=== PATIENT | female | born 1945 | race Caucasian/White ===

== ENCOUNTER → 2017-09-11 15:48 | Outpatient (CLI) | payer MEDICARE, MEDICAID, SELFPAY | PROVIDERS: PCP Physician Assistant; Visit Provider Internal Medicine Cardiovascular Disease | DX: R55 Syncope and collapse (principal); I10 Essential (primary) hypertension; R51 Headache; R53.83 Other fatigue; R40.0 Somnolence | CPT/HCPCS: 93225 ==

== ENCOUNTER → 2017-10-06 11:29 | Outpatient (REF) | payer MEDICARE, MEDICAID, SELFPAY ==
--- NOTE | 2017-10-06 11:41 | NVE_ITS ---
Venous Exam Indications: 729.5 Pain in limb. IMPRESSIONS 1. There is no evidence of significant Reflux. 2. No evidence of deep or superficial vein thrombosis involving the right lower extremity Right lower extremity venous duplex evaluation. Doppler flow study including spectral analysis, color and prieto scale imaging. Location: Vascular laboratory. Patient status: Outpatient. Tables: Venous flow and imaging: + +-------+ + Location Overall Flow properties + +-------+ + Right common femoral Patent Normal phasicity; spontaneous; normal augmentation; compressible + +-------+ + Right saphenofemoral junction Patent Compressible + +-------+ + Right profunda femoral Patent Compressible + +-------+ + Right femoral Patent Normal phasicity; spontaneous; normal augmentation; compressible + +-------+ + Right greater saphenous Patent Normal phasicity; spontaneous; normal augmentation; compressible + +-------+ + Right popliteal Patent Normal phasicity; spontaneous; normal augmentation; compressible + +-------+ + Right posterior tibial Patent Compressible + +-------+ + Right peroneal Patent Compressible + +-------+ + Right gastrocnemius Patent Compressible + +-------+ + Right soleal Patent Compressible + +-------+ + (Report amended ) Electronically signed by: Manohar Marvin [id number]
[2017-10-06 18:25] LABS: Basophils # 0.1 K/mm3 (0-0.2); Basophils % 0.9 % (0.1-2.0); Eosinophils # 0.4 K/mm3 (0.0-0.4); Hematocrit 41.9 % (37.0-47.0); Lymphocytes # 1.8 K/mm3 (0.7-4.5); Lymphocytes % 26.4 K/mm3 (10-50); Mean Corpuscular HGB Conc 31.1 g/dL (31.8-35.4); Mean Corpuscular Hemoglobin 31.1 pg (27.0-31.2); Mean Platelet Volume 10.2 fl (7.4-10.4); Monocytes # 0.5 K/mm3 (0.1-1.0); Monocytes % 7.9 % (1.7-9.3); Neutrophils # 3.9 K/mm3 (1.8-7.8); Neutrophils % 58.8 % (37.0-80.0); Platelet Count 321 K/mm3 (142-424); Red Blood Count 4.19 M/mm3 (4.20-5.40); White Blood Count 6.7 K/mm3 (4.8-10.8)
[2017-10-06 19:21] LABS: Alanine Aminotransferase 25 U/L (12-78); Albumin Level 4.2 gm/dL (3.4-5.0); Albumin/Globulin Ratio 1.3 (1.1-1.8); Alkaline Phosphatase 101 U/L (46-116); Amylase 38 U/L (25-125); Anion Gap 14.3 mEq/L (5-15); Aspartate Amino Transferase 18 U/L (15-37); Bilirubin,Total 0.3 mg/dL (0.2-1.0); Blood Urea Nitrogen 13 mg/dL (7-18); Carbon Dioxide 27 mmol/L (21.0-32.0); Chloride 106 mmol/L (98-107); Chol/HDL Ratio 3.8 (1-3.5); Cholesterol 178 mg/dL (140-200); Creatinine,Serum 1.25 mg/dL (0.55-1.02); Estimated Glomerular Filt Rate 42 ml/min (>60); GFR (African American) 51 ML/MIN (>60); Globulin 3.2 gm/dl (1.3-3.2); Glucose 106 mg/dL (74-106); HDL Cholesterol 47 mg/dL (29-89); LDL Cholesterol 83 mg/dL (0-130); Lipase 316 u/L (73-393); Potassium 4.3 mmoL/L (3.5-5.1); Sodium 143 mmol/L (136-145); T4 (Thyroxine) 7.4 ug/dl (4.7-13.3); Thyroid Stimulating Hormone 1.51 uIU/ml (0.358-3.740); Total Protein,Serum 7.4 gm/dL (6.4-8.2); Triglycerides 240 mg/dL (30-200); VLDL Cholesterol 48 mg/dL (0-40)
[2017-10-08 09:11] LABS: Vitamin D 25 Hydroxy 37.4 ng/mL (30.0-100.0)
== END ==
LOC: LAB 11:29
PROVIDERS: PCP Physician Assistant; Visit Provider Physician Assistant
DX: M79.604 Pain in right leg (principal); R53.83 Other fatigue; I10 Essential (primary) hypertension
CPT/HCPCS: 80053; 80061; 82150; 82652; 83690; 84436; 84443; 85025; 93971

== ENCOUNTER → 2017-10-26 14:43 | Outpatient (CLI) | payer MEDICARE, MEDICAID, SELFPAY ==
--- NOTE | 2017-10-26 14:44 | CA_ITS ---
PROCEDURE: 2-D M-mode and color Doppler study INDICATIONS FOR THE TEST: Chest pain COPD Heart Murmur Tobacco Smoking Palpitations Fatigue+ Syncope+ Edema+ Hypertension+Diabetes Mellitus Rheumatic Fever SOB DUARTE Obesity Hyperlipidemia Family History HD Additional History RAQUEL PATIENT INFORMATION HEIGHT: 67 WEIGHT:209 GENDER: Female B/P:149/71 2-D/M-MODE INTERPRETATION: 2-D MEASUREMENTS OBSERVED VALUES IN CMS Right Ventricular Dimension (RVDd) 1.9 Interventricular Septum (Thickness)(IVsd) 1.3 Left Ventricular Internal Dimensions(LVIDd) 4.5 Left Ventricular Posterior Wall (Thickness)(LVPWd) 0.8 Aortic Root 2.9 Aortic Cusp Separation 2.0 Left Atrial Dimensions (LAD) 4.1 2D 1. Left atrium is mildly enlarged, left ventricle is normal size, mild concentric left ventricular hypertrophy, visually estimated ejection fraction 55% with no obvious regional wall motion abnormality. 2. The right atrium and right ventricle are normal size and contractility. 3. The aortic valve is minimally thickened and fibrosed. 4. The mitral and tricuspid valvular grossly normal. 5. The pulmonic valve is poorly visualized. 6. No significant pericardial effusion noted. DOPPLER INTERROGATION: Doppler interrogation of the aortic, mitral and tricuspid valve reveals presence of mild mitral and tricuspid regurgitation, tricuspid regurgitant jet velocity is insufficient for calculation of the right ventricular systolic pressure, grade 1 diastolic dysfunction seen with tissue Doppler evidence of raised left atrial pressure. CONCLUSION: 1. Mildly enlarged left atrium, normal left ventricular size, mild concentric left ventricular hypertrophy, visually estimated ejection fraction 55% with no obvious regional wall motion abnormality, grade 1 diastolic dysfunction seen with tissue Doppler evidence of raised left atrial pressure. 2. Mild mitral and tricuspid regurgitation 3. No significant pericardial effusion noted.
== END ==
PROVIDERS: Family Provider Physician Assistant; PCP Physician Assistant; Visit Provider Internal Medicine
DX: R55 Syncope and collapse (principal); R53.83 Other fatigue; I10 Essential (primary) hypertension
CPT/HCPCS: 93306

== ENCOUNTER → 2018-06-09 07:29 | Outpatient (CLI) | payer MEDICARE, MEDICAID, SELFPAY ==
--- NOTE | 2018-06-09 07:31 | MM_ITS ---
MM Dig screening mamm BI w/CAD CAD Screening COMPARISON: Digital mammograms with CAD 06/18/2016 and 06/18/2015 INDICATION: There has been a previous lumpectomy for breast cancer left breast, there is a history of breast cancer in patient's paternal aunt and paternal cousin there has been previous biopsy right breast for benign disease. TECHNIQUE: Standard CC and MLO images were obtained. R2 CAD reviewed. FINDINGS: Moderate heterogenic fibroglandular densities are seen in the central portions of both breast. There is mild to moderate post lumpectomy scarring left breast. There are couple benign-appearing calcifications in each breast, there is a mole marker right breast. There is no suspicious lesion and there are no suspicious microcalcifications. IMPRESSION: Stable exam with no suspicious lesion seen BI-RADS Category: 2 Benign Finding(s) RECOMMENDED FOLLOW-UP: 1YR - 1 YEAR FOLLOW-UP (A letter has been sent to the patient regarding results of the study.)
== END ==
PROVIDERS: PCP Physician Assistant; Visit Provider Physician Assistant
DX: Z12.31 Encounter for screening mammogram for malignant neoplasm of breast (principal)
CPT/HCPCS: 77067

== ENCOUNTER → 2018-09-13 14:02 | Outpatient (CLI) | payer MEDICARE, MEDICAID, SELFPAY ==
--- NOTE | 2018-09-13 14:09 | XR_ITS ---
XR knee RT 4V HISTORY: ITS.REASON: Right knee pain ORDERING PHYSICIAN: ALVIN Romo PATIENT AGE: 73 years COMPARISON: None FINDINGS: No fracture or dislocation. No lytic or blastic change. Normal mineralization. There is moderate narrowing of the lateral compartment with lateral tibial plateau spurring and severe narrowing of the patellofemoral joint with small posterior patellar spurs. There are small calcific density also just anterior to the distal femur proximal to the patellofemoral joint. This is only seen on the lateral view. No other significant findings IMPRESSION: No acute fracture. Osteoarthritis. Small calcific density adjacent to the anterior distal femur as discussed above. I cannot distinguish between joint capsule calcification such as chondrocalcinosis or a loose body.
== END ==
PROVIDERS: PCP Emergency Medicine; Visit Provider Physician Assistant
DX: M25.561 Pain in right knee (principal)
CPT/HCPCS: 73564

== ENCOUNTER → 2018-11-23 18:12 | Outpatient (CLI) | payer MEDICARE, MEDICAID, SELFPAY ==
[2018-11-23 18:32] LABS: Basophils # 0.1 K/mm3 (0-0.2); Basophils % 0.7 % (0.1-2.0); Eosinophils # 0.5 K/mm3 (0.0-0.4); Hematocrit 37.8 % (37.0-47.0); Lymphocytes # 1.7 K/mm3 (0.7-4.5); Lymphocytes % 23.2 % (10-50); Mean Corpuscular HGB Conc 31.7 g/dL (31.8-35.4); Mean Corpuscular Hemoglobin 31.3 pg (27.0-31.2); Mean Corpuscular Volume 98.8 fl (81-99); Mean Platelet Volume 9.5 fl (7.4-10.4); Monocytes # 0.5 K/mm3 (0.1-1.0); Monocytes % 6.7 % (1.7-9.3); Neutrophils # 4.5 K/mm3 (1.8-7.8); Neutrophils % 62.5 % (37.0-80.0); Platelet Count 411 K/mm3 (142-424); Red Blood Count 3.83 M/mm3 (4.20-5.40); Red Cell Distribution Width 13.1 % (11.5-17.5); White Blood Count 7.1 K/mm3 (4.8-10.8)
[2018-11-23 19:11] LABS: Alanine Aminotransferase 20 U/L (12-78); Albumin Level 3.9 gm/dL (3.4-5.0); Albumin/Globulin Ratio 1.2 (1.1-1.8); Alkaline Phosphatase 91 U/L (46-116); Anion Gap 16.6 mEq/L (5-15); Aspartate Amino Transferase 14 U/L (15-37); Bilirubin,Total 0.4 mg/dL (0.2-1.0); Blood Urea Nitrogen 28 mg/dL (7-18); Carbon Dioxide 25 mmol/L (21.0-32.0); Chloride 106 mmol/L (98-107); Chol/HDL Ratio 2.8 (1-3.5); Cholesterol 160 mg/dL (140-200); Creatinine,Serum 1.45 mg/dL (0.55-1.02); Estimated Glomerular Filt Rate 35 ml/min (>60); GFR (African American) 43 ML/MIN (>60); Globulin 3.3 gm/dl (1.3-3.2); Glucose 87 mg/dL (74-106); HDL Cholesterol 57 mg/dL (29-89); LDL Cholesterol 77 mg/dL (0-130); Potassium 4.6 mmoL/L (3.5-5.1); Sodium 143 mmol/L (136-145); T4 (Thyroxine) 7.7 ug/dl (4.7-13.3); Total Protein,Serum 7.2 gm/dL (6.4-8.2); Triglycerides 131 mg/dL (30-200); VLDL Cholesterol 26 mg/dL (0-40)
[2018-11-26 11:42] LABS: Vitamin D 25 Hydroxy 35.4 ng/mL (30.0-100.0)
== END ==
PROVIDERS: Visit Provider Physician Assistant
DX: I10 Essential (primary) hypertension (principal); Z79.899 Other long term (current) drug therapy
CPT/HCPCS: 80053; 80061; 82652; 84436; 84443; 85025

== ENCOUNTER → 2018-11-30 07:08 | Outpatient (CLI) | payer MEDICARE, MEDICAID, SELFPAY ==
[2018-11-30 09:03] LABS: Anion Gap 14.2 mEq/L (5-15); Blood Urea Nitrogen 22 mg/dL (7-18); Calcium 9.2 mg/dL (8.5-10.1); Carbon Dioxide 28 mmol/L (21.0-32.0); Chloride 104 mmol/L (98-107); Creatinine,Serum 1.41 mg/dL (0.55-1.02); Estimated Glomerular Filt Rate 37 ml/min (>60); GFR (African American) 44 ML/MIN (>60); Glucose 81 mg/dL (74-106); Potassium 4.2 mmoL/L (3.5-5.1); Sodium 142 mmol/L (136-145)
== END ==
PROVIDERS: Visit Provider Physician Assistant
DX: R79.89 Other specified abnormal findings of blood chemistry (principal)
CPT/HCPCS: 36415; 80048

== ENCOUNTER → 2018-12-06 13:55 | Outpatient (CLI) | payer MEDICARE, MEDICAID, SELFPAY ==
--- NOTE | 2018-12-06 13:58 | MR_ITS ---
PROCEDURE: MR LUMBAR SPINE WO CON CLINICAL INDICATION: back pain Low back pain, right leg pain, chronic wedge compression changes of L2 COMPARISON: SPLUMBLM XR lumbar spine 2-3V from 08/25/2017 TECHNIQUE: Standard multiplanar multiecho sequences are performed without contrast. 3-D MIP and myelographic images are also rendered and reviewed FINDINGS: There is normal alignment. L1-L2: Mild bulging disc. There is chronic mild wedge compression changes involving the L2 vertebral body with loss of height anteriorly of approximately 30 percent without retropulsion. L2-L3: Unremarkable. L3-L4: Mild bulging disc with mild facet and ligamentum hypertrophy along with mild bilateral lateral recess narrowing and mild to moderate bilateral foraminal narrowing. L4-5: Mild bulging disc along with mild facet ligamentum hypertrophy with mild bilateral lateral recess and mild to moderate bilateral foraminal narrowing L5-S1: Mild facet ligamentum hypertrophy with mild degenerative disc disease. Incidental note made of a 3.6 cm right renal cyst and mild ectasia of both renal collecting systems versus parapelvic renal cysts IMPRESSION: 1. Chronic wedge compression changes of L2 without retropulsion 2. Lumbar spondylosis with multilevel facet ligamentum hypertrophy and mild bulging discs with degenerative disc disease with lateral recess and foraminal narrowing. PLEASE SEE ABOVE FOR DETAILED DESCRIPTION AT EACH LEVEL 3. No canal stenosis or extruded herniated disc. Dictated by: Michael Melgoza MD 12/08/2018 05:59 Electronically signed by Michael Melgoza MD in [place] 12/08/2018 05:59
== END ==
PROVIDERS: PCP Physician Assistant; Visit Provider Physician Assistant
DX: M54.16 Radiculopathy, lumbar region (principal); M54.5 Low back pain
CPT/HCPCS: 72148; 76376

== ENCOUNTER → 2018-12-27 10:13 | Outpatient (CLI) | payer MEDICARE, MEDICAID, SELFPAY ==
[2018-12-27 12:52] LABS: Anion Gap 14.2 mEq/L (5-15); Blood Urea Nitrogen 18 mg/dL (7-18); Calcium 8.8 mg/dL (8.5-10.1); Carbon Dioxide 28 mmol/L (21.0-32.0); Chloride 103 mmol/L (98-107); Creatinine,Serum 1.11 mg/dL (0.55-1.02); Estimated Glomerular Filt Rate 48 ml/min (>60); GFR (African American) 58 ML/MIN (>60); Glucose 91 mg/dL (74-106); Potassium 4.2 mmoL/L (3.5-5.1); Sodium 141 mmol/L (136-145)
== END ==
PROVIDERS: Visit Provider Emergency Medicine
DX: N28.9 Disorder of kidney and ureter, unspecified (principal)
CPT/HCPCS: 36415; 80048

== ENCOUNTER → 2019-02-04 08:05 | Outpatient (CLI) | payer MEDICARE, MEDICAID, SELFPAY ==
--- NOTE | 2019-02-04 08:06 | XR_ITS ---
PROCEDURE: XR DEXA AXIAL SKELETON CLINICAL HISTORY: recent humerus fx Recent fracture COMPARISON: No exams were available for comparison FINDINGS: The L1-L4 density is 1.052 grams/centimeters sq with a T-score of -0.1 consistent with osteopenia. The lowest density in the hips is in the right femoral neck at 0.737 grams/centimeters sq with a T-score of -2.2 consistent with osteopenia. IMPRESSION: Osteopenia with moderate fracture risk. Treatment advised. Suggest follow-up exam January 2021 Dictated by: Michael Melgoza MD 02/04/2019 09:29 Electronically signed by Michael Melgoza MD in [place] 02/04/2019 09:29
== END ==
PROVIDERS: PCP Physician Assistant; Visit Provider Emergency Medicine
DX: Z78.0 Asymptomatic menopausal state (principal); M85.89 Other specified disorders of bone density and structure, multiple sites
CPT/HCPCS: 77080

== ENCOUNTER → 2019-02-21 10:46 | Outpatient (CLI) | payer MEDICARE, MEDICAID, SELFPAY ==
--- NOTE | 2019-02-21 11:00 | XR_ITS ---
PROCEDURE: XR HUMERUS LT CLINICAL INDICATION: Left humeral head fracture Follow-up fracture COMPARISON: CXR CHEST(2 VIEWS-NOT PORTABLE) from 06/08/2012 XR SHOULDER LT MIN 2V from 12/22/2018 FINDINGS: Healing fracture is present at the neck of the humerus and at the base of the greater tuberosity. There is increasing callus formation with good alignment. Mid and distal aspect of the humerus has an unremarkable appearance. Displaced fracture involves the distal aspect of the clavicle which is old. IMPRESSION: Healing left humeral neck fracture Dictated by: Michael Melgoza MD 02/21/2019 12:02 Electronically signed by Michael Melgoza MD in [place] 02/21/2019 12:02
== END ==
PROVIDERS: PCP Physician Assistant; Visit Provider Physician Assistant
DX: S42.292D Other displaced fracture of upper end of left humerus, subsequent encounter for fracture with routine healing (principal)
CPT/HCPCS: 73060

== ENCOUNTER → 2019-08-01 13:19 | Outpatient (CLI) | payer MEDICARE, MEDICAID, SELFPAY ==
[2019-08-01 14:59] LABS: Basophils # 0.1 K/mm3 (0-0.2); Basophils % 0.8 % (0.1-2.0); Eosinophils # 0.2 K/mm3 (0.0-0.4); Eosinophils % 2.8 % (0.1-12.0); Lymphocytes # 1.7 K/mm3 (0.7-4.5); Lymphocytes % 23.6 % (10-50); Mean Corpuscular HGB Conc 32.6 g/dL (31.8-35.4); Mean Corpuscular Hemoglobin 31.1 pg (27.0-31.2); Mean Corpuscular Volume 95.2 fl (81-99); Mean Platelet Volume 10.5 fl (7.4-10.4); Monocytes # 0.6 K/mm3 (0.1-1.0); Monocytes % 8.8 % (1.7-9.3); Neutrophils # 4.6 K/mm3 (1.8-7.8); Neutrophils % 63.9 % (37.0-80.0); Platelet Count 424 K/mm3 (142-424); Red Blood Count 4.52 M/mm3 (4.20-5.40); Red Cell Distribution Width 14.3 % (11.5-17.5); White Blood Count 7.1 K/mm3 (4.8-10.8)
[2019-08-01 15:15] LABS: Alanine Aminotransferase 26 U/L (12-78); Albumin Level 5.1 g/dl (3.5-5.0); Albumin/Globulin Ratio 1.8 (1.1-1.8); Alkaline Phosphatase 93 U/L (38-126); Aspartate Amino Transferase 38 U/L (14-36); Bilirubin,Total 0.8 mg/dl (0.2-1.3); Blood Urea Nitrogen 15 mg/dl (7-17); Calcium 9.8 mg/dl (8.4-10.2); Carbon Dioxide 21 mmol/L (22.0-30.0); Chloride 108 mmol/L (98-107); Chol/HDL Ratio 3.3 (1-3.5); Cholesterol 156 mg/dl (140-200); Estimated Glomerular Filt Rate 54 ml/min (>60); GFR (African American) 66 ML/MIN (>60); Globulin 2.8 g/dL (1.3-3.2); Glucose 115 mg/dl (74-100); HDL Cholesterol 47 mg/dl (40-60); Sodium 139 mmol/L (136-145); Total Protein,Serum 7.9 g/dl (6.3-8.2); Triglycerides 213 mg/dl (30-150); VLDL Cholesterol 43 mg/dL (0-40)
[2019-08-01 15:26] LABS: Direct LDL Cholesterol 73.12 mg/dL (100-129)
[2019-08-01 15:32] LABS: T4 (Thyroxine) 9.9 ug/dl (5.53-11.0)
[2019-08-01 15:45] LABS: Thyroid Stimulating Hormone 1.86 uIU/mL (0.465-4.68)
[2019-08-02 15:22] LABS: Vitamin D 25 Hydroxy 47.6 ng/mL (30.0-100.0)
== END ==
PROVIDERS: Visit Provider Physician Assistant
DX: I10 Essential (primary) hypertension (principal); E55.9 Vitamin D deficiency, unspecified
CPT/HCPCS: 80053; 80061; 82652; 84436; 84443; 85025

== ENCOUNTER → 2019-09-05 08:04 | Outpatient (CLI) | payer MEDICARE, MEDICAID, SELFPAY ==
--- NOTE | 2019-09-05 08:04 | CA_ITS ---
APPROVED REPORT Tube Bending Machine Operator: Kierra Murcia RVT Laterality: Bilateral Study Quality: Good Indications: dizziness and syncope Risk Factors Hypertension: Doppler Spectral Velocity Analysis ECA (R) 62.40/8.10 cm/s ECA (L) 57.60/5.90 cm/s dICA (R) 74.20/20.40 cm/s dICA (L) 89.90/31.20 cm/s Deshawn (R) 64.00/19.90 cm/s Deshawn (L) 93.20/25.90 cm/s pICA (R) 60.40/16.00 cm/s pICA (L) 77.60/25.40 cm/s dCCA (R) 53.70/15.00 cm/s dCCA (L) 62.40/15.70 cm/s pCCA (R) 65.00/14.50 cm/s pCCA (L) 74.30/14.40 cm/s Vert (R) 42.50/11.90 cm/s Vert (L) 58.90/14.60 cm/s ICA/CCA 1.38 ICA/CCA 1.49 Findings Study suggets less than 20% stenosis of the right internal cartoid artery unchanged from the 11/23/13 study. Study suggets less than 20 % stenosis of the left internal cartoid atery unchanged from the 11/23/13 study. Antegrade flow seen bilateral vertebral arteries. Left thyroid nodule seen. Conclusion No increased velocities to suggest hemodynamically significant stenosis in either internal carotid artery. Electronically signed by : Michael Melgoza MD 09/05/2019 18:07:41
--- NOTE | 2019-09-05 09:14 | MM_ITS ---
PROCEDURE: MM DIG SCREENING MAMM BI W/CAD Digital Breast Tomosynthesis Included CLINICAL INDICATION: screening There been a previous lumpectomy left breast for malignancy and a previous biopsy right breast for benign disease. There is a history of breast cancer patient's paternal aunt and paternal cousin. COMPARISON: [facility] DIG MAMM-SCREEN BRET from 06/18/2015 [facility] DIG MAMM-SCREEN BRET W/CAD from 06/18/2016 [facility] MM Dig screening mamm BI w/CAD from 06/09/2018 TECHNIQUE: Standard CC and MLO images and 3D Tomosynthesis was obtained. R2 CAD reviewed. FINDINGS: Minimal fibroglandular densities are seen in the central portions of both breasts. There is mild postlumpectomy scarring left breast. There is a mole marker right breast. There are benign-appearing calcifications in each breast. There is no suspicious lesion in either breast and no suspicious microcalcifications. IMPRESSION: Moderate breast density with postlumpectomy scarring left breast and no suspicious lesions seen BI-RAD Category: 2 Benign Finding(s) FOLLOW-UP: 1YR 1 Year Follow-up (A letter has been sent to the patient regarding results of the study.) Dictated by: Dr. Erwin Erickson MD 09/06/2019 12:[address] Erwin Erickson MD in [place] 09/06/2019 12:44
== END ==
PROVIDERS: PCP Physician Assistant; Visit Provider Urology
DX: I10 Essential (primary) hypertension (principal); R42 Dizziness and giddiness; R55 Syncope and collapse; Z12.31 Encounter for screening mammogram for malignant neoplasm of breast
CPT/HCPCS: 77063; 77067; 93306; 93880

== ENCOUNTER → 2019-10-04 13:51 | Outpatient (CLI) | payer MEDICARE, MEDICAID, SELFPAY ==
--- NOTE | 2019-10-04 13:51 | US_ITS ---
PROCEDURE: US THYROID CLINICAL INDICATION: thyroid nodule on carotid US COMPARISON: No exams were available for comparison FINDINGS: Right lobe: 1.6cm x 3.8cm x 1.5cm There is heterogeneous echogenicity of the right lobe of the thyroid gland. There is a 6 mm hypoechoic nodule in the upper pole which is well-circumscribed. A 2 mm hypoechoic nodules present in the upper pole. In the mid polar region there is a 6 mm nodule with heterogeneous echogenicity mostly hypoechoic. In the lower pole there is a 10 mm cyst and AA 4 mm cyst. Left lobe: 1.1cm x 4.1cm x 1.4cm heterogeneous echogenicity noted on the left with a 6 mm hypoechoic heterogeneous nodule in the lower pole a 3 mm cyst in the upper pole and 3 mm cyst involving the isthmus. Also in the lower pole there is a 5 x 2 mm hypoechoic nodule. In the mid to lower pole there is a 1.9 x 0.6 cm spongiform appearing nodule. IMPRESSION: Bilateral thyroid nodules as detailed above the largest in the lower pole on the left. T rads level 3 mildly suspicious. Recommend six-month follow-up Dictated by: Michael Melgoza MD 10/05/2019 11:01 Electronically signed by Michael Melgoza MD in [place] 10/05/2019 11:01
--- NOTE | 2019-10-04 15:24 | MR_ITS ---
PROCEDURE: MR HEAD/BRAIN WO CON CLINICAL INDICATION: Headache left protestant Migraine headache. Dizziness. Breast cancer in remission X [address] 12/22/2018 COMPARISON: CT HEAD/BRAIN WO CON from 12/22/2018 TECHNIQUE: Routine multiplanar multi echo sequences are performed without gadolinium enhancement. FINDINGS: No midline shift, mass effect, intracranial hemorrhage, or hydrocephalus. The cerebellopontine angles, cerebellum, and brainstem have an unremarkable appearance. There is mild generalized atrophy with periventricular and subcortical T2 white matter hyperintensities consistent with ischemic gliotic foci from small vessel disease. The pituitary, optic chiasm, corpus callosum, and craniocervical junction have an unremarkable appearance. No mastoid effusion or sinus air-fluid level. There is mild mucosal thickening of the right maxillary sinus and ethmoid sinuses. 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 Hyperostosis frontalis interna is noted. IMPRESSION: 1. No acute intracranial findings. 2. Atrophy with scattered periventricular and subcortical T2 white matter hyperintensities which may be due to ischemic gliotic change from microvascular disease. Differential diagnosis includes migraine headache and demyelination process. Dictated by: Michael Melgoza MD 10/05/2019 10:43 Electronically signed by Michael Melgoza MD in [place] 10/05/2019 10:43
== END ==
PROVIDERS: PCP Physician Assistant; Visit Provider Physician Assistant
DX: E04.1 Nontoxic single thyroid nodule (principal); R51 Headache; Z85.3 Personal history of malignant neoplasm of breast
CPT/HCPCS: 70551; 76536

== ENCOUNTER → 2019-11-03 09:46 | Outpatient (CLI) | payer MEDICARE, MEDICAID, SELFPAY ==
--- NOTE | 2019-11-03 09:51 | XR_ITS ---
PROCEDURE: XR MULTIPLE SPINE 6+V CLINICAL INDICATION: BACK PAIN Pain COMPARISON: MR MR LUMBAR SPINE WO CON from 12/06/[address] CERVICAL SPINE WO CON from 12/22/2018 FINDINGS: Thoracic spine: Mild multilevel degenerative disc disease. No acute fracture or dislocation. Small anterior osteophytes. There is mild kyphosis of the upper thoracic Lumbar spine: Mild lumbar curvature convex right. There is mild chronic wedging of L2 with degenerative disc disease at L1-L2 and L5-S1. No acute fracture or dislocation. No lytic or blastic change. IMPRESSION: 1. Degenerative changes thoracic lumbar spine. 2. Chronic wedging of L2 Dictated b Michael Melgoza MD 11/03/2019 12:07 Michael Melgoza MD in [place] 11/03/2019 12:07
[2019-11-03 15:02] LABS: Free T4 (Free Thyroxine) 1.02 ng/dl (0.78-2.19)
[2019-11-03 15:18] LABS: Thyroid Stimulating Hormone 2.85 uIU/mL (0.465-4.68)
[2019-11-05 12:27] LABS: Triiodothyronine (T3) Total 120 ng/dL (71-180)
[2019-11-05 13:06] LABS: Thyroid Peroxidase Antibodies <9 IU/mL (0-34)
[2019-11-07 10:31] LABS: Calcitonin <2.0 pg/mL (0.0-5.0)
[2019-11-08 02:54] LABS: Thyroid Stimulating Immunoglob <0.10 IU/L (0.00-0.55)
== END ==
PROVIDERS: PCP Physician Assistant; Visit Provider Physician Assistant
DX: E04.1 Nontoxic single thyroid nodule (principal); M54.5 Low back pain; M54.6 Pain in thoracic spine
CPT/HCPCS: 72084; 82308; 84439; 84443; 84445; 84480; 86376

== ENCOUNTER → 2020-04-04 14:37 | Outpatient (CLI) | payer MEDICARE, MEDICAID, SELFPAY ==
[2020-04-04 14:54] LABS: Alanine Aminotransferase 22 U/L (12-78); Albumin Level 4.2 g/dl (3.5-5.0); Albumin/Globulin Ratio 1.4 (1.1-1.8); Alkaline Phosphatase 81 U/L (38-126); Anion Gap 10.3 mEq/L (5-15); Aspartate Amino Transferase 33 U/L (14-36); Bilirubin,Total 0.5 mg/dl (0.2-1.3); Blood Urea Nitrogen 15 mg/dl (7-17); Calcium 9.3 mg/dl (8.4-10.2); Carbon Dioxide 28 mmol/L (22.0-30.0); Chloride 104 mmol/L (98-107); Chol/HDL Ratio 4.3 (1-3.5); Cholesterol 171 mg/dl (140-200); Estimated Glomerular Filt Rate 54 ml/min (>60); GFR (African American) 66 ML/MIN (>60); Globulin 2.9 g/dL (1.3-3.2); Glucose 112 mg/dl (74-100); HDL Cholesterol 40 mg/dl (40-60); Potassium 4.3 mmoL/L (3.5-5.1); Sodium 138 mmol/L (136-145); Total Protein,Serum 7.1 g/dl (6.3-8.2); Triglycerides 215 mg/dl (30-150); VLDL Cholesterol 43 mg/dL (0-40)
[2020-04-04 14:56] LABS: Basophils # 0.1 K/mm3 (0-0.2); Basophils % 0.9 % (0.1-2.0); Eosinophils # 0.2 K/mm3 (0.0-0.4); Eosinophils % 3.7 % (0.1-12.0); Hematocrit 42.4 % (37.0-47.0); Lymphocytes # 1.7 K/mm3 (0.7-4.5); Lymphocytes % 26.5 % (10-50); Mean Corpuscular Hemoglobin 33.2 pg (27.0-31.2); Mean Corpuscular Volume 100.8 fl (81-99); Mean Platelet Volume 10.5 fl (7.4-10.4); Monocytes # 0.5 K/mm3 (0.1-1.0); Monocytes % 8.2 % (1.7-9.3); Neutrophils # 3.9 K/mm3 (1.8-7.8); Neutrophils % 60.7 % (37.0-80.0); Platelet Count 328 K/mm3 (142-424); Red Cell Distribution Width 13.8 % (11.5-17.5); White Blood Count 6.5 K/mm3 (4.8-10.8)
[2020-04-04 15:05] LABS: Direct LDL Cholesterol 81.14 mg/dL (100-129)
[2020-04-04 15:11] LABS: 25-OH Vitamin D, Total 28.6 ng/mL (30-100)
[2020-04-04 15:12] LABS: Free T4 (Free Thyroxine) 0.92 ng/dl (0.78-2.19)
[2020-04-04 15:25] LABS: Thyroid Stimulating Hormone 1.56 uIU/mL (0.465-4.68)
== END ==
PROVIDERS: Visit Provider Physician Assistant
DX: M81.0 Age-related osteoporosis without current pathological fracture (principal); N28.9 Disorder of kidney and ureter, unspecified; R42 Dizziness and giddiness; R53.83 Other fatigue; M54.9 Dorsalgia, unspecified; I10 Essential (primary) hypertension
CPT/HCPCS: 80053; 80061; 82306; 84439; 84443; 85025

== ENCOUNTER → 2020-04-13 10:09 | Outpatient (CLI) | payer MEDICARE, MEDICAID, SELFPAY ==
--- NOTE | 2020-04-13 10:10 | US_ITS ---
PROCEDURE: US THYROID CLINICAL INDICATION: 6 mth f/u Follow-up nodules COMPARISON: US US THYROID from 10/04/2019 FINDINGS: Right lobe: 4 x 1.2 x 2 cm Left lobe: 4.2 x 0.8 x 1.6 cm Isthmus: Unremarkable Additional findings: In the upper pole medially there is a 4 mm mixed nodule. There is an area of slight decreased echogenicity in the mid polar region anteriorly at 3 mm previously 5 mm. In the mid polar region laterally there is a 6 mm mixed nodule. There is an isoechoic nodule in the lower pole posteriorly at 6 mm probably unchanged. A 9 mm cyst is present in the lower pole unchanged. On the left there are multiple small cyst. There is a 14 x 5 mm spongiform tearing nodule in the lower pole probably unchanged. An additional 4 mm hypoechoic nodules present in the lower pole unchanged. IMPRESSION: There are numerous bilateral nodules which overall do not appear significantly changed considered a difference in scanning technique from the 2 exams. No suspicious nodules are evident. Recommend continued 6-12 month follow-up. Dictated by: Michael Melgoza MD 04/13/2020 14:14 Michael Melgoza MD in [place] 04/13/2020 14:14
== END ==
PROVIDERS: PCP Physician Assistant; Visit Provider Physician Assistant
DX: E04.1 Nontoxic single thyroid nodule (principal)
CPT/HCPCS: 76536

== ENCOUNTER → 2020-08-30 09:37 | Outpatient (CLI) | payer MEDICARE, MEDICAID, SELFPAY ==
--- NOTE | 2020-08-30 09:43 | XR_ITS ---
PROCEDURE: XR FOOT WT BEARING RT 3V CLINICAL INDICATION: pain COMPARISON: No exams were available for comparison FINDINGS: No fracture or dislocation. No lytic or blastic change. There is normal mineralization. The joint spaces are well-preserved. No significant degenerative/arthritic changes. No erosive changes evident. mild pes planus. Small calcaneal spur IMPRESSION: Mild pes planus otherwise negative Dictated by: Michael Melgoza MD 08/30/2020 10:24 Michael Melgoza MD in [place] 08/30/2020 10:24
--- NOTE | 2020-08-30 09:43 | MM_ITS ---
PROCEDURE INFORMATION: Exam: MG Screening 3D Mammography Exam date and time: 08/30/2020 9:43 AM Age: 75 years old Clinical indication: Encounter for screening mammogram for malignant neoplasm of breast TECHNIQUE: Imaging protocol: Screening tomosynthesis and 2D mammography including computer-aided detection (CAD) when performed. COMPARISON: 1. MG MM DIG SCREENING MAMM BI W/CAD 09/05/2019 9:19 AM 2. MG [facility] MM Dig screening mamm BI w/CAD 06/09/2018 8:24 AM FINDINGS: MAMMOGRAPHY: Breast composition: The breast tissue is heterogeneously dense, which may obscure small masses. Mass: None. Architectural distortion: None. Calcifications: No suspicious calcifications. Asymmetric density: None. Skin thickening: None. Axillary adenopathy: None. IMPRESSION: No mammographic evidence of malignancy. Annual screening is recommended unless otherwise clinically indicated. ASSESSMENT: BI-RADS Category 1: Negative
--- NOTE | 2020-08-30 09:43 | XR_ITS ---
PROCEDURE: XR ANKLE WT BEARING LT MIN 3V CLINICAL INDICATION: ankle pain COMPARISON: No exams were available for comparison FINDINGS: Bones: No fracture or dislocation. No lytic or blastic change. There is normal mineralization. Joints: The joint spaces are well-preserved. No significant degenerative/arthritic changes. No erosive changes evident. Other findings:None. IMPRESSION: Negative left ankle Dictated by: Michael Melgoza MD 08/30/2020 10:23 Michael Melgoza MD in [place] 08/30/2020 10:23
--- NOTE | 2020-08-30 09:43 | XR_ITS ---
PROCEDURE: XR FOOT WT BEARING LT 3V CLINICAL INDICATION: pain COMPARISON: No exams were available for comparison FINDINGS: No fracture or dislocation. No lytic or blastic change. There is normal mineralization. The joint spaces are well-preserved. No significant degenerative/arthritic changes. No erosive changes evident. Other findings:Borderline pes planus. Small calcaneal spur and Achilles enthesophyte. IMPRESSION: Borderline pes planus. No acute finding Dictated by: Michael Melgoza MD 08/30/2020 10:22 Michael Melgoza MD in [place] 08/30/2020 10:22
--- NOTE | 2020-08-30 09:43 | XR_ITS ---
PROCEDURE: XR ANKLE WT BEARING RT MIN 3V CLINICAL INDICATION: comparison views COMPARISON: No exams were available for comparison FINDINGS: Bones: No fracture or dislocation. No lytic or blastic change. There is normal mineralization. Joints: Minimal osteoarthritic change at the medial malleolar and talus area Other findings:Small phleboliths are present in the pretibial region in the mid tibial area IMPRESSION: Minimal osteoarthritic change medially Dictated by: Michael Melgoza MD 08/30/2020 10:25 Michael Melgoza MD in [place] 08/30/2020 10:25
== END ==
PROVIDERS: PCP Physician Assistant; Visit Provider Emergency Medicine
DX: Z12.31 Encounter for screening mammogram for malignant neoplasm of breast; M25.572 Pain in left ankle and joints of left foot; M25.571 Pain in right ankle and joints of right foot; M79.672 Pain in left foot; M79.671 Pain in right foot
CPT/HCPCS: 73610; 73630; 77063; 77067

== ENCOUNTER → 2020-10-10 07:36 | Outpatient (CLI) | payer MEDICARE, MEDICAID, SELFPAY ==
--- NOTE | 2020-10-10 | CA_ITS ---
APPROVED REPORT Exam: Pharmacologic Technologist: harinder ellis, Ht: 5 ft 6 in Wt: 222 lbs BSA: 2.09 m2 HR: 85 bpm BP: 180/90 mmHg Rhythm: NSR,L POSTERIOR FASCICULAR BLOCK,LVH Indications: CP Medical History Medical History: HTN Medications: Lisinopril,,,,, Atenolol,,,,, Asa,,,,, Diazepam,,,,, Protonix,,,,, Diclofenac,,,,, Celexa,,,,, AmiTRIPTYLINE,,,,, Prevalite,,,,, Aletvia,,,,, BuTalbital/acetaninophmen,,,,, Cardiac Risk Factors: HTN Stress Test Details Test: LEXISCAN HR Resting HR: 83 bpm Max Heart Rate (APMHR): 146.875868 bpm Max HR Achieved: 107 bpm Target HR (85% APMHR): 124.579384 bpm % of APMHR: 73.29 Recovery HR: 103 bpm BP Resting BP: 180.0/90.0 mmHg Max BP: 180.0/90.0 mmHg Recovery BP: 168.0/84.0 mmHg ECG Resting ECG: NSR,L POSTERIOR FASCICULAR BLOCK,LVH Clinical Exercise duration: 04:01 min Highest Stage Achieved: Stress ECG Conclusion DURING INFUSION OF LEXISCAN PATIENT HAD NO SYMPTOMS. OCCASIONAL PAC. NS T WAVE FLATTENING. UNREMARKABLE LEXISCAN STRESS. MYOVIEW IMAGES REPORTED SEPARATELY. Electronically signed by : Nathan Cain, 10/11/2020 10:31:14
--- NOTE | 2020-10-10 07:46 | NM_ITS ---
APPROVED REPORT Exam: Nuclear Stress Test Indication: chest pain..fatigue Patient Location: Outpatient Stress Tech: Tiffani AndersonKeny [place] Tech:Dena MiguelQASIM RT(R)(N) Ht: 5 ft 6 in Wt: 220 lbs Bra Size: 42 b HR: 85 bpm BP: 180/90 mmHg BSA: 2.08 m2 BMI: 35.5 History: chest pain..fatigue Procedure: Patient received a 0.4 mg of intravenous Lexiscan, resting heart rate 85 bpm, resting blood pressure 180/90 mmHg, with Lexiscan maximum heart rate achived was 106 bpm which is Less than 85 % of the maximum predicted heart rate and blood pressure was 168/84 mmHg. With Lexiscan, patient denied any complaint of chest pain. Electrocardiogram Resting electrocardiogram showed sinus rhythm, with Lexiscan there is less than 1.[address] segment depression noted from the baseline EKG. The EKG portion of the Lexiscan is nondiagnostic. Cardiac Stress and Resting SPECT Images: Cardiac Stress and Resting SPECT images were obtained using technetium 99m Myoview 33.4 mCi stress and 10.21 mCi at rest. Gated SPECT for analysis of segmental wall motion and calculation of the ejection fraction also done. Prone images were not obtained. Cardiac stress and rest SPECT images show mild fixed defect in the anterior wall with normal contractility gated SPECT is likely secondary to soft tissue attenuation, no reversible ischemia seen, computer derived ejection fraction is 51% with no regional wall motion abnormality, right ventricle is normal size and contractility. Conclusion: 1. The EKG portion of the Lexiscan is nondiagnostic. 2. No scintigraphic evidence of reversible ischemia seen, computer derived ejection fraction is 51% with no regional wall motion abnormality, right ventricle is normal size and contractility. 3. Likely normal Lexiscan Myoview study. Electronically signed by : Nathan Cain, 10/11/2020 11:44:14
== END ==
PROVIDERS: PCP Emergency Medicine; Visit Provider Emergency Medicine
DX: R07.9 Chest pain, unspecified (principal)
CPT/HCPCS: 78452; 93017; A9502; J2785

== ENCOUNTER → 2020-11-02 07:28 | Outpatient (CLI) | payer MEDICARE, MEDICAID, SELFPAY ==
[2020-11-02 09:03] LABS: Chloride 103 mmol/L (98-107); Potassium 4.1 mmoL/L (3.5-5.1); Sodium 140 mmol/L (136-145)
[2020-11-02 09:06] LABS: Anion Gap 17.1 mEq/L (5-15); Blood Urea Nitrogen 28 mg/dl (7-17); Calcium 9.3 mg/dl (8.4-10.2); Carbon Dioxide 24 mmol/L (22.0-30.0); Estimated Glomerular Filt Rate 37 ml/min (>60); GFR (African American) 44 ML/MIN (>60); Glucose 102 mg/dl (74-100)
[2020-11-02 09:13] LABS: NT Pro Brain Natriuretic Pep. 307 pg/mL (0-125)
== END ==
PROVIDERS: Visit Provider Internal Medicine Cardiovascular Disease
DX: E66.9 Obesity, unspecified (principal); I10 Essential (primary) hypertension; I65.29 Occlusion and stenosis of unspecified carotid artery; N28.9 Disorder of kidney and ureter, unspecified; R06.00 Dyspnea, unspecified; R42 Dizziness and giddiness; Z68.35 Body mass index [BMI] 35.0-35.9, adult
CPT/HCPCS: 36415; 80048; 83880

== ENCOUNTER → 2020-12-07 07:35 | Outpatient (CLI) | payer MEDICARE, OTHER, MEDICAID, SELFPAY ==
[2020-12-07 08:39] LABS: Anion Gap 15.8 mEq/L (5-15); Blood Urea Nitrogen 14 mg/dl (7-17); Calcium 9.1 mg/dl (8.4-10.2); Carbon Dioxide 29 mmol/L (22.0-30.0); Chloride 99 mmol/L (98-107); Estimated Glomerular Filt Rate 54 ml/min (>60); GFR (African American) 66 ML/MIN (>60); Glucose 94 mg/dl (74-100); Potassium 3.8 mmoL/L (3.5-5.1); Sodium 140 mmol/L (136-145)
== END ==
PROVIDERS: Urology; Visit Provider Internal Medicine Cardiovascular Disease
DX: I10 Essential (primary) hypertension (principal)
CPT/HCPCS: 36415; 80048

== ENCOUNTER 2021-02-06 09:01 | Emergency (ER) | payer MEDICARE, MEDICAID, SELFPAY ==
[2021-02-06 09:01] VITALS: BP 121/54; PULSE 86; RESP 17; TEMP 37; O2SAT 98; BMI 32.2
--- NOTE | 2021-02-06 09:35 | HMH.EDUTC ---
[facility] Clinical Impression: Otitis media Qualifiers: Otitis media type: unspecified Laterality: left Qualified Code(s): H66.92 - Otitis media, unspecified, left ear Disposition: Home, Self-Care Condition on Discharge: Good Instructions: Sinusitis, Middle Ear Infection, DI for Sinusitis Additional Instructions: *Monitor Temp, Over the counter Motrin or Tylenol as directed/as needed Tylenol every 4 hours and Motrin every 6 hours (as long as your family doctor has told you that you can take it) for fever or pain. and straight to ER if unable to lower temp less than 101.0 after medication given *Warm salt water gargles may help to soothe the throat *Throat Lozenges *Warm fluids like tea with honey may help to soothe the throat *Sleep elevated *Humidifier/Vaporizer Take antibiotics as prescribed Follow up with Family Doctor if no improvement or any worsening of symptoms Follow up IMMEDIATELY for new or worsening symptoms or no Noticeable improvement over the next 48-72 hours. 911 for difficulty breathing or swallowing Prescriptions: Amoxicillin/Potassium Clav [Augmentin 875-125 Tablet] 1 tab PO Q12H 10 Days #20 tab Transmission Status: Pending to [facility] Referrals: Modesto Jones MD [Primary Care Provider] - As needed Time of Disposition: 09:45 Medical Decision Making - Syd Inquiry Pt receiving controlled substance: No Syd was queried for this patient: No Vital Signs: 02/06/21 09:01 Temperature 98.6 F Temperature Source Oral Pulse Rate [Right Brachial] 86 Respiratory Rate 17 Blood Pressure [Right Arm] 121/54 L Blood Pressure Mean [Right Arm] 76 Blood Pressure Source [Right Arm] Automatic Cuff Blood Pressure Position [Right Arm] Sitting 02 Sat by Pulse Oximetry 98 Oxygen Delivery Method Room Air [facility] - General Stated complaint: bilateral ear pain Time Seen by Provider: 02/06/21 09:35 Mode of Arrival: Ambulatory Source of Information: Patient Limitations: No Limitations Description of Symptoms (Recalled from Triage Doc. by RN): PATIENT C/O EAR PAIN AND SINUS PRESSURE X 1 MONTH HEENT Symptoms (Recalled from RN notes): Yes Resp Symptoms (Recalled from RN notes): No Skin Symptoms (Recalled from RN notes): No MS Symptoms (Recalled from RN notes): No Functional Status (Recalled from RN notes): WNL - History of Present Illness Provider Complaint: Patient statse that she has been having sinus pressure on and off for about a month and having pain and pressure in both her ears States that she has took some over the counter medication and it helped some but now her ears are hurting worse so she came in - Related Data Home Medications Medication Instructions Recorded Confirmed L.acidophil,paracasei-S.thermophil-bifidobacter 1 cap PO DAILY 05/18/18 12/17/20 8 billion cell capsule vitamin E mixed 400 unit capsule unit PO 10/08/20 12/17/20 risedronate 150 mg tablet 150 mg PO QMONTH tab 10/26/20 12/17/20 Previous Rx's Medication Instructions Recorded aspirin 81 mg tablet,delayed 81 mg PO DAILY #90 tab 06/25/20 release calcium carbonate-vitamin D3 600 1 tab PO DAILY #90 tab 06/25/20 mg(1,500 mg)-400 unit chewable tablet fluticasone propionate 50 1 spray INTRANASAL DAILY #16 g 06/25/20 mcg/actuation nasal spray,suspension loratadine 10 mg tablet See Rx Instructions .ROUTE 06/25/20 .COMPLEX #90 tab meclizine 25 mg tablet 25 mg PO TID PRN #30 tab 06/25/20 pantoprazole 40 mg tablet,delayed See Rx Instructions .ROUTE 06/25/20 release .COMPLEX #90 tab diclofenac sodium 1 % topical gel 2 g TOPICAL QID #100 g 07/10/20 mdgprxqgsx-uvjylvarjrbvf-qjezhlwa 1 cap PO Q4-6H PRN #30 cap 09/17/20 50 mg-325 mg-40 mg capsule losartan 100 1 tab PO DAILY #30 tab 10/26/20 mg-hydrochlorothiazide 12.5 mg tablet vitamin B complex-folic acid 0.4 See Rx Instructions .ROUTE 11/20/20 mg tablet .COMPLEX #90 tab diazepam 10 mg tablet 10 mg PO TID 30 Days #90 tab
[2021-02-06 09:54] VITALS: BP 121/54; PULSE 86; RESP 17; TEMP 37; O2SAT 98
== END 2021-02-06 09:58 | disposition home or self-care (01) ==
PROVIDERS: Emergency Provider Nurse Practitioner; PCP Emergency Medicine
DX: H66.92 Otitis media, unspecified, left ear (principal); F41.8 Other specified anxiety disorders; K21.9 Gastro-esophageal reflux disease without esophagitis; I10 Essential (primary) hypertension; G43.709 Chronic migraine without aura, not intractable, without status migrainosus; Z87.891 Personal history of nicotine dependence
CPT/HCPCS: G0463; 99202

== ENCOUNTER → 2021-05-08 07:35 | Outpatient (CLI) | payer MEDICARE, MEDICAID, SELFPAY ==
[2021-05-08 08:06] LABS: Basophils # 0.1 K/mm3 (0-0.2); Basophils % 0.8 % (0.1-2.0); Eosinophils # 0.3 K/mm3 (0.0-0.4); Eosinophils % 4.3 % (0.1-12.0); Hematocrit 41.3 % (37.0-47.0); Hemoglobin 13.6 g/dL (12.2-16.2); Lymphocytes # 2.1 K/mm3 (0.7-4.5); Lymphocytes % 30.7 % (10-50); Mean Corpuscular Hemoglobin 32.9 pg (27.0-31.2); Mean Corpuscular Volume 99.7 fl (81-99); Mean Platelet Volume 8.7 fl (7.4-10.4); Monocytes # 0.4 K/mm3 (0.1-1.0); Monocytes % 5.9 % (1.7-9.3); Neutrophils # 3.9 K/mm3 (1.8-7.8); Neutrophils % 58.2 % (37.0-80.0); Platelet Count 373 K/mm3 (142-424); Red Blood Count 4.14 M/mm3 (4.20-5.40); Red Cell Distribution Width 13.8 % (11.5-17.5); White Blood Count 6.7 K/mm3 (4.8-10.8)
[2021-05-08 08:31] LABS: Chloride 102 mmol/L (98-107); Potassium 3.6 mmoL/L (3.5-5.1); Sodium 135 mmol/L (136-145)
[2021-05-08 08:34] LABS: Alanine Aminotransferase 30 U/L (12-78); Albumin Level 4.4 g/dl (3.5-5.0); Albumin/Globulin Ratio 1.6 (1.1-1.8); Alkaline Phosphatase 79 U/L (38-126); Anion Gap 10.6 mEq/L (5-15); Aspartate Amino Transferase 38 U/L (14-36); Bilirubin,Total 0.7 mg/dl (0.2-1.3); Blood Urea Nitrogen 16 mg/dl (7-17); Carbon Dioxide 26 mmol/L (22.0-30.0); Cholesterol 180 mg/dl (140-200); Estimated Glomerular Filt Rate 48 ml/min (>60); GFR (African American) 59 ML/MIN (>60); Globulin 2.7 g/dL (1.3-3.2); Total Protein,Serum 7.1 g/dl (6.3-8.2); Triglycerides 256 mg/dl (30-150); VLDL Cholesterol 51 mg/dL (0-40)
[2021-05-08 08:35] LABS: Calcium 8.5 mg/dl (8.4-10.2); Chol/HDL Ratio 4.1 (1-3.5); Glucose 106 mg/dl (74-100); HDL Cholesterol 44 mg/dl (40-60)
[2021-05-08 08:45] LABS: Direct LDL Cholesterol 81.23 mg/dL (100-129)
[2021-05-08 08:52] LABS: Free T4 (Free Thyroxine) 0.98 ng/dl (0.78-2.19)
[2021-05-08 09:05] LABS: Thyroid Stimulating Hormone 2.95 uIU/mL (0.465-4.68)
[2021-05-08 17:47] LABS: 25-OH Vitamin D, Total 34.5 ng/mL (30-100)
== END ==
PROVIDERS: PCP Emergency Medicine; Visit Provider Emergency Medicine
DX: H66.90 Otitis media, unspecified, unspecified ear (principal); N28.9 Disorder of kidney and ureter, unspecified; K59.00 Constipation, unspecified; E03.9 Hypothyroidism, unspecified; M81.0 Age-related osteoporosis without current pathological fracture; R53.83 Other fatigue
CPT/HCPCS: 36415; 80053; 80061; 82306; 84439; 84443; 85025

== ENCOUNTER → 2021-10-16 06:12 | Outpatient (CLI) | payer MEDICARE, MEDICAID, SELFPAY ==
[2021-10-15 21:36] LABS: Alanine Aminotransferase 30 U/L (12-78); Albumin Level 3.8 g/dl (3.5-5.0); Albumin/Globulin Ratio 1.2 (1.1-1.8); Alkaline Phosphatase 126 U/L (38-126); Anion Gap 13.1 mEq/L (5-15); Aspartate Amino Transferase 47 U/L (14-36); Bilirubin,Total 0.5 mg/dl (0.2-1.3); Blood Urea Nitrogen 24 mg/dl (7-17); Calcium 8.6 mg/dl (8.4-10.2); Carbon Dioxide 30 mmol/L (22.0-30.0); Chloride 101 mmol/L (98-107); Estimated Glomerular Filt Rate 29 ml/min (>60); GFR (African American) 35 ML/MIN (>60); Globulin 3.1 g/dL (1.3-3.2); Glucose 109 mg/dl (74-100); Potassium 4.1 mmoL/L (3.5-5.1); Sodium 140 mmol/L (136-145); Total Protein,Serum 6.9 g/dl (6.3-8.2)
[2021-10-15 21:41] LABS: Basophils # 0.1 K/mm3 (0-0.2); Basophils % 0.7 % (0.1-2.0); Eosinophils # 0.2 K/mm3 (0.0-0.4); Eosinophils % 2.5 % (0.1-12.0); Hematocrit 39.6 % (37.0-47.0); Hemoglobin 13.7 g/dL (12.2-16.2); Lymphocytes % 21.3 % (10-50); Mean Corpuscular HGB Conc 34.5 g/dL (31.8-35.4); Mean Corpuscular Hemoglobin 33.9 pg (27.0-31.2); Mean Corpuscular Volume 98.3 fl (81-99); Mean Platelet Volume 9.8 fl (7.4-10.4); Monocytes # 0.8 K/mm3 (0.1-1.0); Monocytes % 8.2 % (1.7-9.3); Neutrophils # 6.4 K/mm3 (1.8-7.8); Neutrophils % 67.4 % (37.0-80.0); Platelet Count 440 K/mm3 (142-424); Red Blood Count 4.03 M/mm3 (4.20-5.40); Red Cell Distribution Width 14.1 % (11.5-17.5); White Blood Count 9.5 K/mm3 (4.8-10.8)
== END ==
PROVIDERS: PCP Family Medicine; Visit Provider Family Medicine
DX: J44.9 Chronic obstructive pulmonary disease, unspecified (principal); H66.90 Otitis media, unspecified, unspecified ear
CPT/HCPCS: 80053; 85025

== ENCOUNTER → 2021-12-17 15:25 | Outpatient (CLI) | payer MEDICARE, MEDICAID, SELFPAY ==
[2021-12-17 18:28] LABS: Anion Gap 12.7 mEq/L (5-15); Blood Urea Nitrogen 17 mg/dl (7-17); Calcium 8.6 mg/dl (8.4-10.2); Carbon Dioxide 33 mmol/L (22.0-30.0); Chloride 98 mmol/L (98-107); Estimated Glomerular Filt Rate 48 ml/min (>60); GFR (African American) 59 ML/MIN (>60); Glucose 116 mg/dl (74-100); Potassium 4.7 mmoL/L (3.5-5.1); Sodium 139 mmol/L (136-145)
== END ==
PROVIDERS: PCP Family Medicine; Visit Provider Family Medicine
DX: N28.9 Disorder of kidney and ureter, unspecified (principal)
CPT/HCPCS: 80048

== ENCOUNTER → 2021-12-19 10:18 | Outpatient (CLI) | payer MEDICARE, MEDICAID, SELFPAY ==
--- NOTE | 2021-12-19 10:19 | MM_ITS ---
PROCEDURE INFORMATION: Exam: MG Bilateral Screening 3D Mammography Exam date and time: 12/19/2021 10:31 AM Age: 76 years old Clinical indication: Screening. Personal history left breast cancer status post left lumpectomy. History of bilateral medial right biopsies and or surgeries. TECHNIQUE: Imaging protocol: Bilateral Screening tomosynthesis and 2D mammography including computer-aided detection (CAD) when performed. COMPARISON: 1. MG MM DIG SCREENING MAMM BI W/CAD 08/30/2020 9:41 AM 2. MG MM DIG SCREENING MAMM BI W/CAD 09/05/2019 9:19 AM 3. MG SCBI MM Dig screening mamm BI w/CAD 06/09/2018 8:24 AM 4. MG DMSB DIG MAMM-SCREEN BRET W/CAD 06/18/2016 1:04 PM FINDINGS: MAMMOGRAPHY: Breast composition: The breasts are heterogeneously dense, which may obscure small masses. Mass: None. Architectural distortion: Stable left postoperative architectural distortion and deformity post lumpectomy. Calcifications: No suspicious calcifications. Asymmetric density: None. Skin thickening: None. Axillary adenopathy: None. IMPRESSION: No mammographic evidence of malignancy. Annual screening is recommended unless otherwise clinically indicated. ASSESSMENT: BI-RADS Category 2: Benign
== END ==
PROVIDERS: PCP Family Medicine; Visit Provider Family Medicine
DX: Z12.31 Encounter for screening mammogram for malignant neoplasm of breast (principal)
CPT/HCPCS: 77063; 77067

== ENCOUNTER → 2022-03-18 16:15 | Outpatient (CLI) | payer MEDICARE, MEDICAID, SELFPAY ==
[2022-03-18 18:57] LABS: Basophils # 0.1 K/mm3 (0-0.2); Basophils % 1.2 % (0.1-2.0); Eosinophils # 0.3 K/mm3 (0.0-0.4); Eosinophils % 3.7 % (0.1-12.0); Hematocrit 37.3 % (37.0-47.0); Hemoglobin 12.5 g/dL (12.2-16.2); Lymphocytes # 2.6 K/mm3 (0.7-4.5); Lymphocytes % 28.4 % (10-50); Mean Corpuscular HGB Conc 33.4 g/dL (31.8-35.4); Mean Corpuscular Hemoglobin 33.3 pg (27.0-31.2); Mean Corpuscular Volume 99.6 fl (81-99); Mean Platelet Volume 10.4 fl (7.4-10.4); Monocytes # 0.8 K/mm3 (0.1-1.0); Monocytes % 8.2 % (1.7-9.3); Neutrophils # 5.4 K/mm3 (1.8-7.8); Neutrophils % 58.6 % (37.0-80.0); Platelet Count 389 K/mm3 (142-424); Red Blood Count 3.74 M/mm3 (4.20-5.40); Red Cell Distribution Width 13.5 % (11.5-17.5); White Blood Count 9.2 K/mm3 (4.8-10.8)
[2022-03-18 18:59] LABS: Chloride 100 mmol/L (98-107); Sodium 139 mmol/L (136-145)
[2022-03-18 19:00] LABS: Potassium 3.5 mmoL/L (3.5-5.1)
[2022-03-18 19:02] LABS: Alanine Aminotransferase 22 U/L (12-78); Albumin Level 4.1 g/dl (3.5-5.0); Albumin/Globulin Ratio 1.6 (1.1-1.8); Alkaline Phosphatase 79 U/L (38-126); Anion Gap 10.5 mEq/L (5-15); Aspartate Amino Transferase 31 U/L (14-36); Bilirubin,Total 0.5 mg/dl (0.2-1.3); Blood Urea Nitrogen 23 mg/dl (7-17); Calcium 9.6 mg/dl (8.4-10.2); Carbon Dioxide 32 mmol/L (22.0-30.0); Estimated Glomerular Filt Rate 44 ml/min (>60); GFR (African American) 53 ML/MIN (>60); Globulin 2.6 g/dL (1.3-3.2); Glucose 102 mg/dl (74-100); Total Protein,Serum 6.7 g/dl (6.3-8.2)
== END ==
PROVIDERS: PCP Family Medicine; Visit Provider Family Medicine
DX: I10 Essential (primary) hypertension (principal)
CPT/HCPCS: 80053; 85025

== ENCOUNTER → 2022-04-18 10:53 | Outpatient (CLI) | payer MEDICARE, MEDICAID, SELFPAY | PROVIDERS: PCP Family Medicine; Visit Provider Family Medicine | DX: I10 Essential (primary) hypertension (principal) ==

== ENCOUNTER → 2022-11-21 23:17 | Outpatient (CLI) | payer MEDICARE, MEDICAID, SELFPAY | PROVIDERS: PCP Family Medicine; Visit Provider Internal Medicine | DX: R53.83 Other fatigue (principal); I10 Essential (primary) hypertension ==

== ENCOUNTER → 2023-01-13 10:59 | Outpatient (CLI) | payer MEDICARE, MEDICAID, SELFPAY ==
[2023-01-13 18:02] LABS: Adenovirus,PCR Not Detected (NotDetected); Coronavirus 19, PCR Not Detected (NotDetected); Coronavirus 229E Not Detected (NotDetected); Coronavirus NL63 Not Detected (NotDetected); Coronavirus OC43 Not Detected (NotDetected); Coronovirus HKU1,PCR Not Detected (NotDetected); Human Metapneumovirus Not Detected (NotDetected); Influenza A, PCR Not Detected (NotDetected); Influenza AH1, 2009 Not Detected (NotDetected); Influenza AH1, PCR Not Detected (NotDetected); Influenza AH3,PCR Not Detected (NotDetected); Influenza B, PCR Not Detected (NotDetected); Parainfluenza 1, PCR Not Detected (NotDetected); Parainfluenza 2, PCR Not Detected (NotDetected); Parainfluenza 3, PCR Not Detected (NotDetected); Parainfluenza 4, PCR Not Detected (NotDetected); Respiratory Syncytial Virus Not Detected (NotDetected); Rhinovirus/Enterovirus Not Detected (NotDetected)
== END ==
PROVIDERS: PCP Family Medicine; Visit Provider Family Medicine
DX: I10 Essential (primary) hypertension (principal); M19.90 Unspecified osteoarthritis, unspecified site; N28.9 Disorder of kidney and ureter, unspecified; R05.3 Chronic cough
CPT/HCPCS: 87632; 87635

== ENCOUNTER → 2023-01-23 09:50 | Outpatient (CLI) | payer MEDICARE, MEDICAID, SELFPAY ==
--- NOTE | 2023-01-23 09:50 | MM_ITS ---
PROCEDURE INFORMATION: Exam: MG Bilateral Screening 3D Mammography Exam date and time: 01/23/2023 9:55 AM Age: 77 years old Clinical indication: Screening. Personal history left breast cancer status post left lumpectomy. History of bilateral medial right biopsies and or surgeries. TECHNIQUE: Imaging protocol: Bilateral Screening tomosynthesis and 2D mammography including computer-aided detection (CAD) when performed. COMPARISON: 1. MG MM DIG SCREENING MAMM BI W/CAD 12/19/2021 10:31 AM 2. MG MM DIG SCREENING MAMM BI W/CAD 08/30/2020 9:41 AM 3. MG MM DIG SCREENING MAMM BI W/CAD 09/05/2019 9:19 AM 4. MG SCBI MM Dig screening mamm BI w/CAD 06/09/2018 8:24 AM FINDINGS: MAMMOGRAPHY: Breast composition: The breasts are heterogeneously dense, which may obscure small masses. Mass: None. Architectural distortion: Stable left postoperative architectural distortion and deformity post lumpectomy. Calcifications: No suspicious calcifications. Asymmetric density: None. Skin thickening: None. Axillary adenopathy: None. IMPRESSION: No mammographic evidence of malignancy. Annual screening is recommended unless otherwise clinically indicated. ASSESSMENT: BI-RADS Category 2: Benign
== END ==
PROVIDERS: PCP Family Medicine; Visit Provider Family Medicine
DX: Z12.31 Encounter for screening mammogram for malignant neoplasm of breast (principal)
CPT/HCPCS: 77063; 77067

== ENCOUNTER 2023-02-20 18:13 | Emergency (ER) | payer MEDICARE, MEDICAID, SELFPAY ==
[2023-02-20 18:40] VITALS: BP 130/80; PULSE 88; RESP 18; TEMP 36.6; O2SAT 96; BMI 28.9
--- NOTE | 2023-02-20 18:43 | EXP.UTC ---
Discharge Plan Disposition Patient Disposition: Home, Self-Care Condition: Good Prescriptions Prescriptions: New benzonatate [benzonatate] 100 mg capsule 100 mg PO TIDP PRN (Reason: Cough) Qty: 30 0RF prednisone 10 mg tablet 10 mg PO DIRECTED 9 Days Qty: 21 0RF Rx Instructions: Take 4 tablets daily for 3 days, then take 2 tablets daily for 3 days, then take 1 tablet daily for 3 days, then stop. cefdinir 300 mg capsule 300 mg PO BID Qty: 20 0RF guaifenesin [Mucinex] 600 mg tablet extended release 12hr 600 - 1,200 mg PO BIDP PRN (Reason: Congestion) Qty: 30 0RF No Action fluticasone propionate 50 mcg/actuation spray,suspension 1 spray intranasal DAILY Qty: 16 2RF Rx Instructions: administer into each nostril risedronate 150 mg tablet See Rx Instructions .ROUTE .COMPLEX Qty: 3 3RF Dose Instruction: Take 1 tablet by mouth once a month. Rx Instructions: Take 1 tablet by mouth once a month. aspirin [Adult Aspirin Regimen] 81 mg tablet,delayed release (DR/EC) 81 mg PO DAILY Qty: 90 0RF loratadine 10 mg tablet See Rx Instructions .ROUTE .COMPLEX Qty: 90 2RF Dose Instruction: TAKE 1 TABLET BY MOUTH DAILY Rx Instructions: TAKE 1 TABLET BY MOUTH DAILY prednisone 20 mg tablet 20 mg PO .COMPLEX Qty: 15 0RF Rx Instructions: 20 mg orally BID x 5 days then daily x 5 days levofloxacin 500 mg tablet 500 mg PO Q24H Qty: 10 0RF albuterol sulfate 90 mcg/actuation HFA aerosol inhaler 2 puff inhalation Q4-6H PRN (Reason: shortness of breath or wheezing) Qty: 8.5 0RF vitamin E mixed 400 unit capsule PO vitamin B complex-folic acid 0.4 mg tablet See Rx Instructions .ROUTE .COMPLEX Qty: 90 0RF Dose Instruction: TAKE 1 TABLET BY MOUTH DAILY FOR SUPPLEMENT Rx Instructions: TAKE 1 TABLET BY MOUTH DAILY FOR SUPPLEMENT calcium carbonate-vitamin D3 600 mg-10 mcg (400 unit) tablet See Rx Instructions .ROUTE .COMPLEX Qty: 90 3RF Dose Instruction: TAKE 1 TABLET BY MOUTH DAILY Rx Instructions: TAKE 1 TABLET BY MOUTH DAILY diclofenac sodium 1 % gel 2 g TOPICAL QID Qty: 100 2RF Rx Instructions: apply to inner ankle ergocalciferol (vitamin D2) 1,250 mcg (50,000 unit) capsule See Rx Instructions .ROUTE .COMPLEX Qty: 12 3RF Dose Instruction: TAKE 1 CAPSULE BY MOUTH ONCE WEEKLY Rx Instructions: TAKE 1 CAPSULE BY MOUTH ONCE WEEKLY losartan-hydrochlorothiazide 100-12.5 mg tablet See Rx Instructions .ROUTE .COMPLEX Qty: 30 5RF Dose Instruction: TAKE 1 TABLET BY MOUTH EVERY MORNING Rx Instructions: TAKE 1 TABLET BY MOUTH EVERY MORNING atenolol 50 mg tablet See Rx Instructions .ROUTE .COMPLEX Qty: 90 0RF Dose Instruction: Take 1 Tablet by mouth once daily for blood pressure. Rx Instructions: Take 1 Tablet by mouth once daily for blood pressure. citalopram 40 mg tablet See Rx Instructions .ROUTE .COMPLEX Qty: 30 2RF Dose Instruction: Take 1 Tablet by mouth once daily. Rx Instructions: Take 1 Tablet by mouth once daily. szqqbxcdnl-dwrdvtbmpnrsr-bipo 50-325-40 mg capsule 1 cap PO .QID prn PRN (Reason: pain) Qty: 40 1RF diazepam 10 mg tablet 10 mg PO TID 30 Days Qty: 90 2RF pantoprazole 40 mg tablet,delayed release (DR/EC) See Rx Instructions .ROUTE .COMPLEX Qty: 45 3RF Dose Instruction: Take 1 Tablet by mouth every other day. Rx Instructions: Take 1 Tablet by mouth every other day. Referrals Follow up/Referrals: Flavio Sorensen MD [Primary Care Provider] - See instructions Activity Restrictions/Add. Instructions Additional Instructions/Restrictions: Drink plenty of fluids. Take tylenol or ibuprofen for pain or fever. Take the medications as directed. Follow up with your regular doctor. GO TO THE ER FOR ANY WORSENING SYMPTOMS Clinical Impressions Clinical Impression:
[2023-02-20 19:31] VITALS: BP 130/80; PULSE 88; RESP 18; TEMP 36.6; O2SAT 96
== END 2023-02-20 19:31 | disposition home or self-care (01) ==
PROVIDERS: Emergency Provider Nurse Practitioner Family; PCP Family Medicine
DX: H66.93 Otitis media, unspecified, bilateral (principal); J01.90 Acute sinusitis, unspecified; R06.2 Wheezing; R09.81 Nasal congestion; J30.9 Allergic rhinitis, unspecified; K21.9 Gastro-esophageal reflux disease without esophagitis; I10 Essential (primary) hypertension
CPT/HCPCS: 99212; 99214; G0463

== ENCOUNTER 2023-06-02 18:36 | Outpatient (CLI) | payer MEDICARE, MEDICAID, SELFPAY ==
[2023-06-02 18:36] LABS: Coronavirus 19, PCR Not Detected (NotDetected); Influenza A, PCR Not Detected (NotDetected); Influenza B, PCR Not Detected (NotDetected); MANUAL DIFFERENTIAL MANUAL DIFFERENTIAL (MANUAL DIFF)
[2023-06-02 18:53] LABS: Basophils # 0.1 K/mm3 (0-0.2); Basophils % 0.9 % (0.1-2.0); Eosinophils # 0.3 K/mm3 (0.0-0.4); Eosinophils % 4.8 % (0.1-12.0); Hematocrit 41.6 % (37.0-47.0); Hemoglobin 13.4 g/dL (12.2-16.2); Lymphocytes # 1.9 K/mm3 (0.7-4.5); Lymphocytes % 27.3 % (10-50); Mean Corpuscular HGB Conc 32.1 g/dL (31.8-35.4); Mean Corpuscular Hemoglobin 33.8 pg (27.0-31.2); Mean Corpuscular Volume 105.2 fl (81-99); Mean Platelet Volume 10.9 fl (7.4-10.4); Monocytes # 0.4 K/mm3 (0.1-1.0); Neutrophils # 4.2 K/mm3 (1.8-7.8); Platelet Count 381 K/mm3 (142-424); Red Blood Count 3.96 M/mm3 (4.20-5.40); Red Cell Distribution Width 13.7 % (11.5-17.5); White Blood Count 6.9 K/mm3 (4.8-10.8)
[2023-06-02 18:57] LABS: Chloride 110 mmol/L (98-107); Sodium 140 mmol/L (136-145)
[2023-06-02 18:59] LABS: Alanine Aminotransferase 34 U/L (12-78); Aspartate Amino Transferase 37 U/L (14-36); Blood Urea Nitrogen 17 mg/dl (7-17); Estimated Glomerular Filt Rate 48 ml/min (>60); GFR (African American) 58 ML/MIN (>60)
[2023-06-02 19:00] LABS: Albumin Level 3.8 g/dl (3.5-5.0); Albumin/Globulin Ratio 1.5 (1.1-1.8); Alkaline Phosphatase 98 U/L (38-126); Bilirubin,Total 0.6 mg/dl (0.2-1.3); Calcium 7.7 mg/dl (8.4-10.2); Carbon Dioxide 26 mmol/L (22.0-30.0); Globulin 2.5 g/dL (1.3-3.2); Glucose 116 mg/dl (74-100); Total Protein,Serum 6.3 g/dl (6.3-8.2)
[2023-06-02 19:42] LABS: Anion Gap 7.1 mEq/L (5-15); Potassium 3.1 mmoL/L (3.5-5.1)
[2023-06-02 20:57] LABS: Eosinophils % 3 % (0-3); Lymphocytes % 27 % (10-50); Macrocytosis 1+; Monocytes % 7 % (2-9); Neutrophils % 63 % (42-76); Platelet Estimate Normal; Total Cells Counted 100
== END 2023-06-02 23:59 ==
LOC: LAB.DROPOF 18:37
PROVIDERS: PCP Family Medicine; Visit Provider Family Medicine
DX: R05.3 Chronic cough (principal); J32.4 Chronic pansinusitis; R51.9 Headache, unspecified; R11.10 Vomiting, unspecified; J30.0 Vasomotor rhinitis
CPT/HCPCS: 80053; 85007; 85014; 85018; 85048; 85049; 87636

== ENCOUNTER 2023-06-17 11:32 | Outpatient (CLI) | payer MEDICARE, MEDICAID, SELFPAY ==
--- NOTE | 2023-06-17 11:33 | XR_ITS ---
FINAL REPORT CLINICAL HISTORY: persistant cough FINDINGS: SINGLE-VIEW CHEST There is mild cardiomegaly. Large hiatal hernia is identified. The mediastinum is normal. The lungs are clear. There is no pneumothorax. IMPRESSION: No acute cardiopulmonary process. Reviewed, Interpreted and Dictated by Kei Cardenas MD Transcribed by Jenny Umana Authenticated and [facility]
--- NOTE | 2023-06-17 11:33 | CT_ITS ---
FINAL REPORT TECHNIQUE: Axial images through the facial bones and sinuses was performed by computed tomography. Sagittal and coronal reformatted images were obtained and reviewed. This study was performed with techniques to keep radiation doses as low as reasonably achievable (ALARA). Individualized dose reduction techniques using automated exposure control or adjustment of mA and/or kV according to the patient's size were employed. CLINICAL HISTORY: sinusitis FINDINGS: There is hyperostosis frontalis interna. There is complete opacification of the right maxillary sinus in the ethmoid air cells. There is calcification or ossification in the medial portion of the right maxillary sinus. Focus measures proximally 1.3 cm. The medial wall of the right maxillary sinus appears disrupted. The left maxillary sinus is well aerated. IMPRESSION: Expansile opacification of the right maxillary sinus with internal calcification and ossification. Findings may be due to underlying chronic sinusitis however a more aggressive fungal infection can not be excluded. ENT evaluation is recommended. Reviewed, Interpreted and Dictated by Kei Cardenas MD Transcribed by Jenny Umana Authenticated and [facility]
== END 2023-06-17 23:59 ==
LOC: RAD 11:33
PROVIDERS: PCP Family Medicine; Visit Provider Family Medicine
DX: R05.3 Chronic cough (principal); J32.4 Chronic pansinusitis; Z87.891 Personal history of nicotine dependence
CPT/HCPCS: 70486; 71046

== ENCOUNTER 2023-07-21 18:00 | Outpatient (CLI) | payer MEDICARE, MEDICAID, SELFPAY ==
[2023-07-21 19:06] LABS: Chloride 104 mmol/L (98-107); Potassium 3.7 mmoL/L (3.5-5.1); Sodium 139 mmol/L (136-145)
[2023-07-21 19:09] LABS: Alanine Aminotransferase 25 U/L (12-78); Albumin Level 3.9 g/dl (3.5-5.0); Albumin/Globulin Ratio 1.6 (1.1-1.8); Alkaline Phosphatase 75 U/L (38-126); Anion Gap 8.7 mEq/L (5-15); Aspartate Amino Transferase 46 U/L (14-36); Bilirubin,Total 0.8 mg/dl (0.2-1.3); Blood Urea Nitrogen 24 mg/dl (7-17); Carbon Dioxide 30 mmol/L (22.0-30.0); Estimated Glomerular Filt Rate 36 ml/min (>60); GFR (African American) 44 ML/MIN (>60); Globulin 2.5 g/dL (1.3-3.2); Total Protein,Serum 6.4 g/dl (6.3-8.2)
[2023-07-21 19:10] LABS: Calcium 9.3 mg/dl (8.4-10.2); Glucose 105 mg/dl (74-100)
== END 2023-07-21 23:59 | disposition home or self-care (01) ==
LOC: LAB.DROPOF 07-22 12:44
PROVIDERS: PCP Family Medicine; Visit Provider Family Medicine
DX: E87.6 Hypokalemia (principal); E55.9 Vitamin D deficiency, unspecified; J32.0 Chronic maxillary sinusitis; J30.0 Vasomotor rhinitis; I10 Essential (primary) hypertension; N28.9 Disorder of kidney and ureter, unspecified
CPT/HCPCS: 80053; 82652

== ENCOUNTER 2023-09-15 13:08 | Outpatient (CLI) | payer MEDICARE, MEDICAID, SELFPAY ==
--- NOTE | 2023-09-15 13:08 | CA_ITS ---
APPROVED REPORT EXAM: Comprehensive 2D, Doppler, and color-flow Echocardiogram Retail Manager In Training: AMISHA Ordonez, RVS Ht: 5 ft 5 in Wt: 198lbs BSA: 1.97 BP: 105/54 mmHg Indications: HTN, Dizziness, Murmur 2D Dimensions LVDs 2.61 cm F: 2.2 - 3.5 LA Volume 108.20 mL Left Atrium 3.19 cm F: 2.7 - 3.8 LA Volume Index 54.655120 mL/m2 (M/F) 16-34 M-Mode Dimensions RVDd 1.35 cm (0.9-2.6) LA Diam 4.41 cm (1.9-4.0) LVDd 4.09 cm (3.5-5.7) LVDs 2.66 cm (3.5-5.7) IVSd 0.86 cm (0.6-1.1) PWd 0.70 cm (0.6-1.1) EF (Teich) 64.80% EPSs 0.54 cm FS 35.00% EDV (Teich) 73.80 mL TAPSE 2.48 (<1.7) ESV (Teich) 26.00 mL LV Diastology E Decel Time 243 (160-240 msec) E/A Ratio 1.51 MED A' 8.90 cm/s LAT A' 8.80 cm/s Aortic Valve CARMEN Index 1.16 cm2/m2 AoV Peak Jose. 138.0 (50-130 cm/s) AO Peak GR. 7.60 mmHg AO Mean GR. 3.90 (<5 mmHg) AO VTI 30.9 (18-25 cm) CARMEN (VTI) 2.34 (2.5-4.5 cm2) Mitral Valve MV A Velocity 78.0 (40-130 cm/s) E/A Ratio 1.51 MV Mean Gr. 2.40 (<2mmHg) Pulmonary Valve PV Peak Velocity 78.0 (50-150 cm/s) TX End VMAX 161.0 cm/s Tricuspid Valve TR P. Velocity 197.00 cm/s RAP Estimate 10.00 mmHg RVSP 25.50 mmHg Left Ventricle The left ventricle is normal size. The left ventricular systolic function is normal. The left ventricular ejection fraction is within the normal range. There is normal left ventricular wall thickness. There is normal LV segmental wall motion. The left ventricular diastolic function is normal. LVEF is 55%. Right Ventricle The right ventricle is normal size. The right ventricular systolic function is normal. Atria Left atrium is moderately dilated. The right atrium size is normal. There is no Doppler evidence of interatrial shunt. Aortic Valve The aortic valve is mildly thickened. There is no aortic valvular stenosis. Trace aortic regurgitation. Mitral Valve The mitral valve leaflets are mildly thickened. No evidence of mitral valve stenosis. Mild mitral regurgitation. Tricuspid Valve The tricuspid valve leaflets are thin and pliable. Mild tricuspid regurgitation. RVSP is normal. Pulmonic Valve The pulmonary valve is grossly normal in structure. Trace pulmonic regurgitation. Great Vessels The aortic root is normal in size. The ascending aorta is not well-visualized. IVC is normal in size and collapses >50% with inspiration. Pericardium There is no pericardial effusion. Other Information Study Quality: Fair Conclusion Normal biventricular systolic function. Moderate left atrial dilation. Mild MR, mild TR. Electronically signed by : Ambika Ruby MD 09/19/2023 21:59:45
--- NOTE | 2023-09-15 13:08 | CA_ITS ---
FINAL REPORT CLINICAL HISTORY: dizziness and ADAM COMPARISON: None FINDINGS: RIGHT CAROTID: CCA PSV -82 cm/sec ICA PSV -94 cm/sec ICA/CCA PSV ratio -1.15. Comments: Mild plaque disease is noted. LEFTCAROTID: CCA PSV -85. cm/sec ICA PSV -132. cm/sec ICA/CCA PSV ratio -1.55. Comments: Mild plaque disease is noted. Antegrade flow is seen within the vertebral arteries. IMPRESSION: Carotid stenosis classified less than 50% Reviewed, Interpreted and Dictated by Flavio Donohue MD Transcribed by Florence Lou Authenticated and [facility]
== END 2023-09-15 23:59 | disposition home or self-care (01) ==
LOC: RT 13:08
PROVIDERS: PCP Family Medicine; Visit Provider Nurse Practitioner Family
DX: I51.7 Cardiomegaly (principal); I34.0 Nonrheumatic mitral (valve) insufficiency; R42 Dizziness and giddiness; Z87.891 Personal history of nicotine dependence
CPT/HCPCS: 93306; 93880

== ENCOUNTER 2023-10-28 08:10 | Outpatient (CLI) | payer MEDICARE, MEDICAID, SELFPAY ==
--- NOTE | 2023-10-28 08:19 | ECG_ITS ---
APPROVED REPORT Exam: Resting ECG HR:64 bpm ECG Measurements Heart Rate 64 AXES NM 187 P 92 QRSd 88 QRS 90 QT 421 T 79 QTc 431 Conclusion SINUS RHYTHM NORMAL ECG UNCONFIRMED REPORT Electronically signed by : Adam Arzate MD 10/29/2023 08:56:39
[2023-10-28 08:32] LABS: Basophils # 0.1 K/mm3 (0-0.2); Basophils % 1.5 % (0.1-2.0); Eosinophils # 0.3 K/mm3 (0.0-0.4); Hematocrit 39.4 % (37.0-47.0); Hemoglobin 13.5 g/dL (12.2-16.2); Lymphocytes # 2.5 K/mm3 (0.7-4.5); Lymphocytes % 38.4 % (10-50); Mean Corpuscular HGB Conc 34.2 g/dL (31.8-35.4); Mean Corpuscular Volume 99.5 fl (81-99); Mean Platelet Volume 9.1 fl (7.4-10.4); Monocytes # 0.6 K/mm3 (0.1-1.0); Monocytes % 9.7 % (1.7-9.3); Neutrophils % 45.4 % (37.0-80.0); Platelet Count 281 K/mm3 (142-424); Red Blood Count 3.96 M/mm3 (4.20-5.40); White Blood Count 6.6 K/mm3 (4.8-10.8)
[2023-10-28 09:33] LABS: Alanine Aminotransferase 21 U/L (12-78); Albumin/Globulin Ratio 1.4 (1.1-1.8); Alkaline Phosphatase 61 U/L (38-126); Anion Gap 10.5 mEq/L (5-15); Aspartate Amino Transferase 29 U/L (14-36); Bilirubin,Total 0.7 mg/dl (0.2-1.3); Blood Urea Nitrogen 22 mg/dl (7-17); Calcium 9.2 mg/dl (8.4-10.2); Carbon Dioxide 30 mmol/L (22.0-30.0); Chloride 103 mmol/L (98-107); Estimated Glomerular Filt Rate 40 ml/min (>60); GFR (African American) 48 ML/MIN (>60); Globulin 2.8 g/dL (1.3-3.2); Glucose 98 mg/dl (74-100); Potassium 3.5 mmoL/L (3.5-5.1); Sodium 140 mmol/L (136-145); Total Protein,Serum 6.8 g/dl (6.3-8.2)
== END 2023-10-28 23:59 | disposition home or self-care (01) ==
LOC: LAB 08:11
PROVIDERS: PCP Family Medicine; Visit Provider Otolaryngology
DX: J32.2 Chronic ethmoidal sinusitis (principal); J32.0 Chronic maxillary sinusitis; Z87.891 Personal history of nicotine dependence
CPT/HCPCS: 36415; 80053; 85025; 93005

== ENCOUNTER 2023-11-04 09:57 | Day surgery (SDC) | payer MEDICARE, MEDICAID, SELFPAY ==
[2023-10-30 11:17] VITALS: BMI 31.0
[2023-11-04] VITALS (9 sets, daily range): BP systolic 111–142; BP diastolic 68–82; PULSE 69–88; RESP 14–19; TEMP 36.6; O2SAT 94–98
--- NOTE | 2023-11-04 10:09 | ECG_ITS ---
APPROVED REPORT Exam: Resting ECG HR:69 bpm ECG Measurements Heart Rate 69 AXES MI 182 P 72 QRSd 90 QRS 52 QT 423 T 47 QTc 442 Conclusion SINUS RHYTHM NORMAL ECG UNCONFIRMED REPORT Electronically signed by : Adam Arzate MD 11/06/2023 16:04:06
[2023-11-04] MEDS: LACTATED RINGERS 1000ML 1,000 ML 25 ML IV (10:33)
--- NOTE | 2023-11-04 10:42 | EXP.ANES.CKL ---
[facility] Disclaimer: The information contained in this section may have been updated after the patient was seen, as this information can be updated by other users. Medical History Chronic ethmoidal sinusitis Carotid artery disease Vitamin D deficiency Hypokalemia Chronic right maxillary sinusitis Chronic vasomotor rhinitis Persistent cough Serous otitis media Primary hypertension Frequent headaches Immunization due History of breast lump Osteoporosis Bronchitis Muscle spasm Allergic rhinitis Vertigo Depression GERD (gastroesophageal reflux disease) Hypertension Anxiety Surgical History H/O left wrist surgery H/O tubal ligation H/O splenectomy Hx of colonoscopy History of cholecystectomy Family History Other Cancer Diabetes Heart attack Social History Smoking Status: Former smoker alcohol intake: never substance use type: denies use current occupational status: retired and other Travel in the last 8 weeks: None household members: family housing: house [facility] Anesthesia Checklist Patient Identification Patient Identification: Arm Band, Family and Verbal (Name & ) Structural Data Admitted From: Home Planned Operative Procedure/s: FESS Consent for Planned Operative Procedure(s) Verified: Yes Verified Documents: Surgical Consent and History and Physical NPO Status Verified Time NPO: 00:00 Chart Verification Results Verified: CBC, BMP, ECG and Chest Xray Additional verifications Patient : No Anesthesia Reactions: No Hx Blood Transfusions: Yes Cardiovascular Assessment Heart Sounds: S1 & S2 Pulse Rhythm: Irregular Peripheral Edema: No Airway Assessment Mallampati Score:: Class II C-Spine Mobility Assessed: Yes (FROM) TMJ Mobility Assessed: Yes Dentition: Edentulous Neurological Assessment Level of Consciousness: Awake, Alert, Appropriate and Follows Commands Hx Seizures: No Numbness or tingling in extremities: No Anesthesia Plan Anesthesia Risk discussed: Yes Anesthesia Plan: Verified ASA Class: III Anesthesia Type: General
[2023-11-04] MEDS: CEFAZOLIN SODIUM 1 GM in 0.9 % SODIUM CHLORIDE 50 ML IV (11:15)
[2023-11-04] MEDS: OXYMETAZOLINE NASAL SPRAY 0.05% 15ML 15 ML NS (11:41)
[2023-11-04] MEDS: LIDOCAINE 1% W/EPI 1:100,000 20ML VIAL 20 ML (11:41)
--- NOTE | 2023-11-04 12:02 | P.OP_ITS ---
Date of procedure: 11/04/23 Pre-op Diagnosis:: Chronic right maxillary and right ethmoid sinusitis Post-op Diagnosis:: Chronic right maxillary and right ethmoid sinusitis Procedure performed:: Functional endoscopic sinus surgery with nasal endoscopy and right partial ethmoidectomy, nasal endoscopy and right maxillary antrostomy and removal of antral mucosal disease Surgeon:: Oswaldo Santiago MD JUNIOR BUSINESS ANALYST:: Andrés Norton Anesthesia: GETA Estimated blood loss (mL): 0 Operative findings:: Purulent concretions completely filling the right maxillary sinus and eroding the medial wall of the maxillary sinus and extending into the middle meatus and septum Operative note:: The patient was brought to the operating room and after adequate general anesthesia the nose was draped in the usual sterile fashion and 1% lidocaine wit h epinephrine used to locally infiltrate the right middle meatus. Using a 0 recent send the scope of the middle turbinate was medialized and then polypoid debris in fungal debris was removed from the middle meatus and then the natural ostium to the maxillary sinus was enlarged and then uncinectomy performed with a microdebrider clearing the nasal frontal tract infundibulum the purulent material in the maxillary sinus was first cultured and then irrigation with normal saline and suction was performed until the maxillary sinus was clear. There was a large amount of purulent debris and concretions consistent with fungal sinusitis. Using a microdebrider, polypoid mucosa in the anterior ethmoid was cleared until normal mucosa was seen posteriorly. Nova pack was placed in the right middle meatus and the procedure concluded. All counts correct and blood loss was minimal Condition: stable Disposition: PACU Complications:: No complications
--- NOTE | 2023-11-04 12:04 | EXP.ANES.I ---
[facility] Anesthesia Record Part I Anesthesia Record I Intake, IV Amount: 1,200 Hydration: Adequate Estimated blood loss (mL): 5 Urine output (mL): 0 Blood Products used (#): none Blood Pressure: 140/72 SaO2: 96 Pulse Rate: 88 Airway Patency: Patent Respiratory Rate: 16 Temperature: 97.8 F Patient is:: Drowsy and Stable Stable to PACU at:: 12:00
--- NOTE | 2023-11-05 08:00 | P.PNANES_ITS ---
[facility] Anesthesia Record Part II Anesthesia Record Part II Discharge Time: 12:30 Destination: Surgical Day Care (OP Surgery) PACU nurse assessment reviewed?: Yes Patient Condition:: Good Anesthesia Complications:: None Swallowing reflex intact?: Yes Airway Patency: Patent Cyanosis?: No Blood Pressure: 129/78 SaO2: 96 Respiratory Rate: 18 Pulse Rate: 85 Temperature: 98 F Mental Status: Alert & Oriented Pain level:: 0 Nausea and/or vomitting:: None Intake, IV Amount: 0 Hydration: Adequate
[2023-11-05 08:01] VITALS: BP 129/78; PULSE 85; RESP 18; TEMP 36.6; O2SAT 96
== END 2023-11-04 13:01 | disposition home or self-care (01) ==
PROVIDERS: PCP Family Medicine; Visit Provider Otolaryngology
PROC: (CPT 30520; principal; 2023-11-04 11:15)
DX: J32.0 Chronic maxillary sinusitis (principal); J32.2 Chronic ethmoidal sinusitis
CPT/HCPCS: 31254; 31267; 87075; 87102; 87205; 87206; 88305; 93005; 96374; J3490; J1100; J2405; J3010; J7120

== ENCOUNTER 2024-02-05 07:40 | Outpatient (CLI) | payer MEDICARE, MEDICAID, SELFPAY ==
--- NOTE | 2024-02-05 07:55 | MM_ITS ---
PROCEDURE INFORMATION: Exam: MG Bilateral Screening 3D Mammography Exam date and time: 02/05/2024 7:47 AM Age: 78 years old Clinical indication: Screening examination; history of left breast cancer TECHNIQUE: Imaging protocol: Bilateral Screening tomosynthesis and 2D mammography including computer-aided detection (CAD) when performed. COMPARISON: MG MM DIG SCREENING MAMM BI W/CAD 08/30/2020 9:41 AM FINDINGS: MAMMOGRAPHY: Breast composition: There are scattered areas of fibroglandular density. Mass: None. Architectural distortion: Stable post operative architectural distortion in the left upper breast due to prior lumpectomy for carcinoma. Calcifications: No suspicious calcifications. Asymmetric density: None. Skin thickening: None. Axillary adenopathy: None. IMPRESSION: No mammographic evidence of malignancy. Annual screening is recommended unless otherwise clinically indicated. ASSESSMENT: BI-RADS Category 2: Benign.
== END 2024-02-05 23:59 | disposition home or self-care (01) ==
LOC: RAD 07:42
PROVIDERS: PCP Family Medicine; Visit Provider Family Medicine
DX: Z12.31 Encounter for screening mammogram for malignant neoplasm of breast (principal)
CPT/HCPCS: 77063; 77067

== ENCOUNTER 2024-03-03 10:01 | Outpatient (CLI) | payer MEDICARE, MEDICAID, SELFPAY ==
--- NOTE | 2024-03-03 10:14 | XR_ITS ---
FINAL REPORT CLINICAL HISTORY: Erosive OA COMPARISON: None FINDINGS: RIGHT KNEE: Two views of the right knee were obtained. There is no evidence of fracture or dislocation. The bony alignment is normal. Moderate degenerative change is present, greatest in the lateral compartment of the knee. There is a presumed loose body in the suprapatellar bursa, measuring 9 mm in size. There is no evidence of joint effusion. IMPRESSION: Moderate degenerative change, greatest in the lateral compartment of the knee. Presumed suprapatellar bursa 9 mm loose body. Reviewed, Interpreted and Dictated by Bebeto Smith III, MD Transcribed by Dior Lu Authenticated and [facility]
== END 2024-03-03 23:59 | disposition home or self-care (01) ==
PROVIDERS: PCP Family Medicine; Visit Provider Family Medicine
DX: M15.4 Erosive (osteo)arthritis (principal)
CPT/HCPCS: 73560

== ENCOUNTER 2024-05-16 12:00 | Outpatient (CLI) | payer MEDICARE, MEDICAID, SELFPAY ==
[2024-05-16 20:26] LABS: Basophils # 0.1 K/mm3 (0-0.2); Basophils % 0.7 % (0.1-2.0); Eosinophils # 0.2 K/mm3 (0.0-0.4); Eosinophils % 2.9 % (0.1-12.0); Hematocrit 37.5 % (37.0-47.0); Hemoglobin 12.2 g/dL (12.2-16.2); Lymphocytes # 1.8 K/mm3 (0.7-4.5); Lymphocytes % 24.2 % (10-50); Mean Corpuscular HGB Conc 32.5 g/dL (31.8-35.4); Mean Corpuscular Hemoglobin 32.7 pg (27.0-31.2); Mean Corpuscular Volume 100.5 fl (81-99); Mean Platelet Volume 12.2 fl (7.4-10.4); Monocytes # 0.8 K/mm3 (0.1-1.0); Neutrophils # 4.6 K/mm3 (1.8-7.8); Neutrophils % 60.8 % (37.0-80.0); Platelet Count 265 K/mm3 (142-424); Red Blood Count 3.73 M/mm3 (4.20-5.40); Red Cell Distribution Width 13.8 % (11.5-17.5); White Blood Count 7.5 K/mm3 (4.8-10.8)
[2024-05-16 22:48] LABS: Albumin Level 4.1 g/dl (3.5-5.0); Chloride 100 mmol/L (98-107); Sodium 140 mmol/L (136-145)
[2024-05-16 22:49] LABS: Potassium 3.9 mmoL/L (3.5-5.1)
[2024-05-16 22:51] LABS: Alanine Aminotransferase 22 U/L (12-78); Albumin/Globulin Ratio 1.8 (1.1-1.8); Alkaline Phosphatase 59 U/L (38-126); Anion Gap 11.9 mEq/L (5-15); Aspartate Amino Transferase 30 U/L (14-36); Bilirubin,Total 0.7 mg/dl (0.2-1.3); Blood Urea Nitrogen 22 mg/dl (7-17); Carbon Dioxide 32 mmol/L (22.0-30.0); Estimated Glomerular Filt Rate 54 ml/min (>60); GFR (African American) 65 ML/MIN (>60); Globulin 2.3 g/dL (1.3-3.2); Total Protein,Serum 6.4 g/dl (6.3-8.2)
[2024-05-16 22:52] LABS: Calcium 9.3 mg/dl (8.4-10.2); Glucose 92 mg/dl (74-100)
[2024-05-16 23:31] LABS: HIV Combo NEGATIVE (Negative)
[2024-05-16 23:38] LABS: Hepatitis C Ab Qual. W/ RFX NEGATIVE (Negative)
== END 2024-05-16 23:59 | disposition home or self-care (01) ==
LOC: LAB.DROPOF 05-17 16:14
PROVIDERS: PCP Family Medicine; Visit Provider Family Medicine
DX: Z90.81 Acquired absence of spleen (principal)
CPT/HCPCS: 80053; 85025; 86803; 87389

== ENCOUNTER 2024-12-05 09:47 | Outpatient (CLI) | payer MEDICARE, MEDICAID, SELFPAY ==
[2024-12-05 15:33] LABS: Hematocrit 39.6 % (37.0-47.0); Hemoglobin 13.1 g/dL (12.2-16.2); Immature Granulocytes % 0.2 %; Mean Corpuscular HGB Conc 33.1 g/dL (31.8-35.4); Mean Corpuscular Hemoglobin 33.0 pg (27.0-31.2); Mean Corpuscular Volume 99.7 fl (81-99); Nucleated Red Blood Cells % 0 %; Platelet Count 309 K/mm3 (142-424); Red Blood Count 3.97 M/mm3 (4.20-5.40); Red Cell Distribution Width-SD 48.6 fL; White Blood Count 8.6 K/mm3 (4.8-10.8)
[2024-12-05 18:01] LABS: Albumin Level 4.5 g/dl (3.5-5.0); Chloride 103 mmol/L (98-107); Sodium 140 mmol/L (136-145)
[2024-12-05 18:02] LABS: Potassium 3.8 mmoL/L (3.5-5.1)
[2024-12-05 18:04] LABS: Alanine Aminotransferase 16 U/L (12-78); Albumin/Globulin Ratio 1.7 (1.1-1.8); Alkaline Phosphatase 63 U/L (38-126); Anion Gap 14.8 mEq/L (5-15); Aspartate Amino Transferase 28 U/L (14-36); Bilirubin,Total 0.8 mg/dl (0.2-1.3); Blood Urea Nitrogen 28 mg/dl (7-17); Calcium 9.6 mg/dl (8.4-10.2); Carbon Dioxide 26 mmol/L (22.0-30.0); Cholesterol 158 mg/dl (140-200); Creatinine,Serum 1.30 mg/dl (0.52-1.04); Estimated Glomerular Filt Rate 40 ml/min (>60); GFR (African American) 48 ML/MIN (>60); Globulin 2.6 g/dL (1.3-3.2); Glucose 103 mg/dl (74-100); Total Protein,Serum 7.1 g/dl (6.3-8.2); Triglycerides 210 mg/dl (30-150)
[2024-12-05 18:05] LABS: HDL Cholesterol 37 mg/dl (40-60)
[2024-12-05 18:27] LABS: 25-OH Vitamin D, Total 32.7 ng/mL (30-100)
[2024-12-05 18:36] LABS: Thyroid Stimulating Hormone 1.45 uIU/mL (0.465-4.68)
--- OUTSIDE RECORDS SUMMARY | 2024-12-06 11:45 | XMS_ITS | CCD ---
Author Organization Unknown Care Team Providers Care Line Controller Name Role Phone Unavailable Primary Care Provider Unavailabl e Unavailable Chronic Care Management Unavaila ble Summary Purpose DataExchange Insurance Providers Payer name Policy type / Coverage type Covered alliance party ID Effective Begin Date Effective End Date [facility] [id number] Unknown Unknown Family History Family History data not found Medication Administered No Medication Administered data Reason For Visit No Reason For Visit data Medical Equipment No Medical Equipment data Advance Directives No Advance Directive data
--- OUTSIDE RECORDS SUMMARY | 2024-12-06 11:45 | XMS_ITS | CCD ---
Author Organization Unknown Care Team Providers Care [place]essemer Converter Operator Name Role Phone Unavailable Primary Care Provider Unavailabl e Unavailable Chronic Care Management Unavaila ble Summary Purpose DataExchange Insurance Providers Payer name Policy type / Coverage type Covered libertarian ID Effective Begin Date Effective End Date [facility] [id number] Unknown Unknown Family History Family History data not found Medication Administered No Medication Administered data Reason For Visit No Reason For Visit data Medical Equipment No Medical Equipment data Advance Directives No Advance Directive data
== END 2024-12-05 23:59 ==
LOC: LAB.DROPOF 12-06 10:23
PROVIDERS: PCP Nurse Practitioner; Visit Provider Nurse Practitioner
DX: E55.9 Vitamin D deficiency, unspecified (principal); I10 Essential (primary) hypertension; K21.9 Gastro-esophageal reflux disease without esophagitis; I65.29 Occlusion and stenosis of unspecified carotid artery
CPT/HCPCS: 80053; 80061; 82306; 84443; 85025

== ENCOUNTER 2025-03-09 13:03 | Outpatient (CLI) | payer MEDICARE, MEDICAID, SELFPAY ==
--- NOTE | 2025-03-09 13:30 | MM_ITS ---
PROCEDURE INFORMATION: Exam: MG Bilateral Screening 3D Mammography Exam date and time: 03/09/2025 1:30 PM Age: 79 years old Clinical indication: Screen. Personal history of left breast cancer status post lumpectomy. TECHNIQUE: Imaging protocol: Bilateral Screening tomosynthesis and 2D mammography including computer-aided detection (CAD) when performed. COMPARISON: 1. MG MM DIG SCREENING MAMM BI W/CAD 02/05/2024 7:47 AM 2. MG MM DIG SCREENING MAMM BI W/CAD 01/23/2023 9:55 AM 3. MG MM DIG SCREENING MAMM BI W/CAD 08/30/2020 9:41 AM FINDINGS: MAMMOGRAPHY: Breast composition: There are scattered areas of fibroglandular density. Mass: None. Architectural distortion: Stable postsurgical changes on the left. Calcifications: No suspicious calcifications. Asymmetric density: None. Skin thickening: None. Axillary adenopathy: None. IMPRESSION: No mammographic evidence of malignancy. Annual screening is recommended unless otherwise clinically indicated. ASSESSMENT: BI-RADS Category 2: Benign.
== END 2025-03-09 23:59 | disposition home or self-care (01) ==
LOC: RAD 13:04
PROVIDERS: PCP Family Medicine; Visit Provider Family Medicine
DX: Z12.31 Encounter for screening mammogram for malignant neoplasm of breast (principal); R92.323 Mammographic fibroglandular density, bilateral breasts; Z90.12 Acquired absence of left breast and nipple; Z85.3 Personal history of malignant neoplasm of breast
CPT/HCPCS: 77063; 77067